=== PATIENT | male | born 1970 | race Two or more races ===

== ENCOUNTER 2021-05-16 22:26 | Inpatient (IN) ==
--- NOTE | 2021-05-16 23:08 | DR.EXTPAIN ---
HPI Time seen Time Seen by Provider: 05/16/21 23:01 PCP Primary Care Physician: GUNNER KEITH HPI Comment HPI Comment: PATIENT IS 50YR OLD MALE IN ER WITH PAIN AND SWELLING LEFT CALF DUE TO ABSCESS AND CELLULITIS TIMES 2 WEEKS. STATED ANTIBIOTICS 05/10/21 AND IS STILL TAKING IT. NO IMPROVEMENT. PAIN, SWELLING AND REDNESS WORSE TODAY. HE IS A DIABETIC. DENIES FEVER. SMALL PUS DRAINAGE PRESENT. Complaint/Symptoms Chief Complaint Doctor Comments: CELLULITIS AND ABSCESS LEFT CALF. 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 INFECTION IN HIS LOWER LEFT LEG FOR 2 WEEKS, HIS PCP STARTED HIM ON BACTRIM DS AND TORADOL ON 05/10/21, HE STATES IT HAS NOT GOTTEN ANY BETTER Self Treatment fo Chief Complaint: TAKING ANTIBIOTIC AND ANTI-INFLAMMATORY THAT WAS PRESCRIBED ON 05/10/21 COVID-19 Coronavirus risk:travel/contact w/high risk person: No Has patient experienced Coronavirus symptoms: No Nurses notes reviewed Nurses Notes Review: Yes Source History Provided: Patient and Family Member Mode of arrival Mode of Arrival: Ambulatory Timing Onset of Chief Complaint: 04/25/21 Context History of: None Associated signs and symptoms Associated Signs and Symptoms: Pain and Swelling PMH PMH Past Medical History: Yes Past Medical History: Diabetes Past Surgical History: Yes Surgical History: Other Past Surgical History Comment: TOE ON LEFT FOOT REMOVED Family History History of Family Medical Conditions: Yes Family Medical History: Diabetes Mellitus Social History Does patient currently use any type of tobacco product: No Have you used tobacco products in the last 12 months: No Type of Tobacco Use: None Does any household member use tobacco: No Alcohol Use: Rarely Do you use any recreational Drugs:: No Lives With: Family Lives Where: Home Travel Risk Coronavirus risk:travel/contact w/high risk person: No Has patient experienced Coronavirus symptoms: No Infectious screening Have you traveled outside the country in the last 6 months?: No Isolation: Standard ROS Review of Systems Constitutional: See HPI, Weakness and Fatigue; negative Fever Eyes: No Symptoms Reported and See HPI; negative Blurred Vision and Diplopia ENTM: No Symptoms Reported and See HPI; negative Nose Discharge and Nose Congestion Respiratoy: No Symptoms Reported and See HPI; negative Moist Cough, Short of Breath and Wheezing Cardiovascular: See HPI and Palpitations; negative Chest Pain Gastrointestinal/Abdominal: No Symptoms Reported, See HPI, Abdominal Pain, Constipation and Diarrhea Genitourinary: No Symptoms Reported and See HPI; negative Dysuria Neurological: No Symptoms Reported and See HPI; negative Headache, Seizure and Tingling Musculoskeletal: No Symptoms Reported, See HPI and Leg (LEFT CALF ABSCESS AND CELLULITIS.); negative Back Pain Integumentary: No Symptoms Reported and See HPI; negative Rash and Juandice Hematologic/Lymphatic: No Symptoms Reported and See HPI; negative Easy Bruising Endocrine: No Symptoms Reported and See HPI; negative Increased Thirst and Increased Urine Psychiatric: No Symptoms Reported and See HPI All Other Systems: Reviewed and Negative PE Vital Signs Vitals: Temperature 99.0 F Pulse Rate 81 Respiratory Rate 20 Blood Pressure [Left Arm] 176/91 Blood Pressure 185/108 O2 Sat by Pulse Oximetry 99 General Limitations: No Limitations General Appearance: Alert and In No Apparent Distress Head Head Exam: Normal Inspection and Atraumatic Eyes Eye exam: Normal Appearance and PERRL ENT ENT Exam: Normal Exam Neck Neck Exam: Normal Inspection Chest Chest Inspection: Normal Inspection Respiratory Respiratory Exam: Normal Lung Sounds Bilat; negative Accessory Muscle Use, Chest Wall Tenderness and Respiratory Distress Respiratory Exam: Bilateral: Clear to Auscultation Cardiovascular Cardiovascular Exam: Regular Rate, Normal Rhythm and Normal Heart Sounds; n egative Systolic Murmur and Diastolic Murmur Abdominal Exam Abdominal Exam: Normal Inspection, Normal Bowel Sounds and Soft; negative Tenderness Extremities Extremities Exam: Normal Inspection, Tenderness, Normal Capillary Refill, Calf Tenderness and Other Back Back Exam: Normal Inspection Neurological Neurological Exam: Alert, Oriented X3 and CN II-XII Intact Psychiatric Psychiatric Exam: Normal Affect and Normal Mood Skin Skin Exam: Warm, Dry, Intact and Normal Color MDM Differential Diagnosis Differential Diagnosis: Other (ABSCESS AND CELLULITIS LEFT CALF. PAIN LEFT CALF.) COURSE Treatment Treatment: SEE ORDERS DONE WHILE IN ER. ROR Labs Reviewed Laboratory Results Reviewed?: Yes Result Diagrams: 05/20/21 04:40 05/20/21 04:40 Laboratory: 05/16/21 23:30 Blood Blood Culture - Final 05/16/21 23:25 Blood Blood Culture - Final WBC 7.2 X10^3/uL (3.6-10.0) 05/16/21 23:25 RBC 3.91 X10^6/uL (4.7-6.0) L 05/16/21 23:25 Hgb 11.8 g/dL (13.5-18.0) L 05/16/21: Hct 34.8 % (42.0-54.0) L 05/16/21: MCV 89.2 fL (80.0-100.0) 05/16/21: MCH 30.1 pg (27.0-34.0) 05/16/21: MCHC 33.7 g/dL (33.0-35.0) 05/16/21: RDW 12.8 % (11.6-16.5) 05/16/21: Plt Count 290 X10^3/uL (150.0-450.0) 05/16/21: MPV 9.3 fL (7.4-11.0) 05/16/21: Neut % (Auto) 62.6 % (42.0-75.0) 05/16/21: Lymph % (Auto) 21.5 % (21.0-51.0) 05/16/21: [place] % (Auto) 9.0 % (0.0-13.0) 05/16/21: Eos % (Auto) 4.1 % (0.9-2.9) H 05/16/21: Baso % (Auto) 2.8 % (0.2-1.0) H 05/16/21: Neut # (Auto) 4.5 x10^3/uL (2.2-4.8) 05/16/21: Lymph # (Auto) 1.5 X10^3/uL (1.3-2.9) 05/16/21: [place] # (Auto) 0.6 x10^3/uL (0.3-0.8) 05/16/21: Eos # (Auto) 0.3 x10^3/uL (0.0-0.2) H 05/16/21: Baso # (Auto) 0.2 X10^3/uL (0.0-0.1) H 05/16/21: Absolute Nucleated RBC 0.1 /100WBC 05/16/21: Sodium 128 mmol/L (136-145) L 03/20/22 23:25 Corrected Sodium 134 mmol/L (136-145) L 05/16/21 23:25 Potassium 4.9 mmol/L (3.5-5.1) 05/16/21 23:25 Chloride 94 mmol/L (98-107) L 05/16/21 23:25 Carbon Dioxide 24.9 mmol/L (21-32) 05/16/21 23:25 BUN 26 mg/dL (7-18) H 05/16/21 23:25 Creatinine 1.14 mg/dL (0.70-1.30) 05/16/21 23:25 Est GFR (MDRD) Af Amer > 60 (>60) 05/16/21 23:25 Est GFR (MDRD) Non-Af > 60 (>60) 05/16/21 23:25 Glucose 343 mg/dL (65-99) H 05/16/21 23:25 Calcium 8.6 mg/dL (8.5-10.1) 05/16/21 23:25 Corrected Calcium 9.2 mg/dL (8.5-10.1) 05/16/21 23:25 Total Bilirubin 0.10 mg/dL (0.2-1.0) L 05/16/21 23:25 AST 11 Units/L (15-37) L 05/16/21 23:25 ALT 12 Units/L (12-78) 05/16/21 23:25 Alkaline Phosphatase 99 Units/L (46-116) 05/16/21 23:25 Total Protein 7.4 g/dL (6.4-8.2) 05/16/21 23:25 Albumin 3.2 g/dL (3.4-5.0) L 05/16/21 23:25 Globulin 4.2 g/dL (2.5-4.5) 05/16/21 23:25 Albumin/Globulin Ratio 0.8 Ratio (1.1-2.1) L 05/16/21 23:25 SARS CoV-2 RNA Rapid ALEXANDER Negative (NEGATIVE) 05/17/21 02:06 XRAY XRAY Interpreted by: Radiologist and Self Opioid Opioid Risk Tool Age (Ben box if 16-45): Yes History of Preadolescent Sexual Abuse: No Total: 1 Total Score Risk Category: Low Risk Copyright: Tan LR predicting aberrant behaviors Diagnosis Discharge Problem: Cellulitis and abscess of left leg, Pain of left calf Diabetes mellitus Qualifiers: Diabetes mellitus type: type 2 Instructions Instructions: Antibiotic Medicine, Adult, [id number] Skin Abscess, Knzu-[id number] Diabetes Basics Living With Diabetes Cellulitis, Adult, [id number] Hypertension, Adult, [id number] Form - Blood Pressure Record Sheet Form - Diabetes Action Plan You've Been Prescribed an Antibiotic in the Hospital for an Infection - CDC Managing Your Hypertension Diabetes Mellitus and Nutrition Forms: Excuse From Work or School Precautions for COVID19 [facility] Social Distancing
[2021-05-16] MEDS ORDERED: CLEOCIN 600 MG IV PREMIX 600 MG/50 ML BAG IV ONE (23:09)
[2021-05-16 23:36] LABS: BASOPHILS # (AUTO) 0.2 X10^3/uL (0.0-0.1); BASOPHILS % (AUTO) 2.8 % (0.2-1.0); EOSINOPHILS # (AUTO) 0.3 x10^3/uL (0.0-0.2); EOSINOPHILS % (AUTO) 4.1 % (0.9-2.9); HEMATOCRIT 34.8 % (42.0-54.0); HEMOGLOBIN 11.8 g/dL (13.5-18.0); LYMPHOCYTES # (AUTO) 1.5 X10^3/uL (1.3-2.9); LYMPHOCYTES % (AUTO) 21.5 % (21.0-51.0); MEAN CORPUSCULAR HEMOGLOBIN 30.1 pg (27.0-34.0); MEAN CORPUSCULAR HGB CONC 33.7 g/dL (33.0-35.0); MEAN CORPUSCULAR VOLUME 89.2 fL (80.0-100.0); MEAN PLATELET VOLUME 9.3 fL (7.4-11.0); MONOCYTES # (AUTO) 0.6 x10^3/uL (0.3-0.8); NEUTROPHILS # (AUTO) 4.5 x10^3/uL (2.2-4.8); NEUTROPHILS % (AUTO) 62.6 % (42.0-75.0); RED BLOOD COUNT 3.91 X10^6/uL (4.7-6.0); RED CELL DISTRIBUTION WIDTH 12.8 % (11.6-16.5); WHITE BLOOD COUNT 7.2 X10^3/uL (3.6-10.0)
[2021-05-16 23:49] LABS: ALANINE AMINOTRANSFERASE 12 Units/L (12-78); ALBUMIN 3.2 g/dL (3.4-5.0); ALKALINE PHOSPHATASE 99 Units/L (46-116); ASPARTATE AMINO TRANSFERASE 11 Units/L (15-37); BLOOD UREA NITROGEN 26 mg/dL (7-18); CALCIUM 8.6 mg/dL (8.5-10.1); CARBON DIOXIDE 24.9 mmol/L (21-32); CHLORIDE 94 mmol/L (98-107); COR CA(FOR HYPOALB) 9.2 mg/dL (8.5-10.1); COR NA(FOR HYPERGLY) 134 mmol/L (136-145); CREATININE 1.14 mg/dL (0.70-1.30); SODIUM 128 mmol/L (136-145); TOTAL PROTEIN 7.4 g/dL (6.4-8.2); eGFR NON BLACK RACES > 60 (>60)
[2021-05-17] MEDS ORDERED: NS 1,000 ML IV 1,000 ML ONE (00:35)
[2021-05-17] MEDS ORDERED: CLEOCIN 600 MG IV PREMIX 600 MG/50 ML BAG IV ONE (00:35)
[2021-05-17] MEDS: NS 1,000 ML IV 1,000 ML IV SCH ×4 (00:55→20:24)
--- NOTE | 2021-05-17 03:16 | RAD ---
PROCEDURE: Left Tibia Fibula 2 Views .HISTORY: Left calf abscess.TECHNIQUE: Left AP and lateral views .COMPARISON: None .TECHNICAL QUALITY: Satisfactory .FINDINGS:No fracture dislocation.No bony destruction or periosteal reaction.No soft tissue abnormality.IMPRESSION:No abnormality identified.Electronically signed by: Derrick Lora (May 17, 2021 03:16:03)
[2021-05-17] MEDS ORDERED: ZOFRAN TAB 4 MG PO PRN (03:50)
[2021-05-17 05:32] LABS: BASOPHILS % (AUTO) 0.7 % (0.2-1.0); EOSINOPHILS # (AUTO) 0.3 x10^3/uL (0.0-0.2); EOSINOPHILS % (AUTO) 4.5 % (0.9-2.9); HEMATOCRIT 33.9 % (42.0-54.0); HEMOGLOBIN 11.6 g/dL (13.5-18.0); LYMPHOCYTES # (AUTO) 1.6 X10^3/uL (1.3-2.9); LYMPHOCYTES % (AUTO) 24.3 % (21.0-51.0); MEAN CORPUSCULAR HEMOGLOBIN 30.3 pg (27.0-34.0); MEAN CORPUSCULAR HGB CONC 34.2 g/dL (33.0-35.0); MEAN CORPUSCULAR VOLUME 88.7 fL (80.0-100.0); MEAN PLATELET VOLUME 9.2 fL (7.4-11.0); MONOCYTES # (AUTO) 0.7 x10^3/uL (0.3-0.8); NEUTROPHILS % (AUTO) 60.5 % (42.0-75.0); RED BLOOD COUNT 3.82 X10^6/uL (4.7-6.0); RED CELL DISTRIBUTION WIDTH 12.7 % (11.6-16.5); WHITE BLOOD COUNT 6.6 X10^3/uL (3.6-10.0)
[2021-05-17 05:43] LABS: ALANINE AMINOTRANSFERASE 13 Units/L (12-78); ALKALINE PHOSPHATASE 93 Units/L (46-116); ASPARTATE AMINO TRANSFERASE 16 Units/L (15-37); BLOOD UREA NITROGEN 23 mg/dL (7-18); CALCIUM 8.3 mg/dL (8.5-10.1); CARBON DIOXIDE 24.3 mmol/L (21-32); CHLORIDE 97 mmol/L (98-107); COR CA(FOR HYPOALB) 9.1 mg/dL (8.5-10.1); COR NA(FOR HYPERGLY) 135 mmol/L (136-145); CREATININE 0.96 mg/dL (0.70-1.30); SODIUM 129 mmol/L (136-145); TOTAL PROTEIN 7.1 g/dL (6.4-8.2); eGFR NON BLACK RACES > 60 (>60)
[2021-05-17] MEDS: CLEOCIN 600 MG IV PREMIX 600 MG/50 ML BAG IV SCH ×3 (05:51→22:43)
[2021-05-17] MEDS: NovoLIN R (or HumuLIN R) SC PRN ×3 (05:52→17:10)
[2021-05-17] MEDS ORDERED: CLEOCIN VIAL 600 MG 600 MG in D5W 50 ML IV 50 ML IV SCH (06:00)
[2021-05-17] MEDS: MOTRIN TAB 600 MG PO PRN ×2 (08:30→17:10)
[2021-05-17 12:03] VITALS: BMI 25.3
[2021-05-17] MEDS ORDERED: ZESTRIL TAB 20 MG ONE (12:27)
[2021-05-17] MEDS: ZESTRIL TAB 20 MG PO SCH (12:30)
[2021-05-17] MEDS: CIPRO IV 400 MG PREMIX* 400 MG/200 ML IV.SOLN. IV SCH ×2 (12:30→20:22)
[2021-05-17 15:18] LABS: BILIRUBIN,URINE NEGATIVE (NEGATIVE); BLOOD/HEMOGLOBIN,URINE 1+ (NEGATIVE); GLUCOSE, URINE 4+ (NEGATIVE); KETONES,URINE NEGATIVE (NEGATIVE); LEUKOCYTE ESTERASE ,URINE NEGATIVE (NEGATIVE); NITRITES,URINE NEGATIVE (NEGATIVE); PROTEIN,URINE NEGATIVE (NEGATIVE); UROBILINOGEN,URINE NORMAL (NORMAL)
[2021-05-17 15:32] LABS: APPEARANCE,URINE CLEAR (CLEAR); COLOR,URINE PALE YELLOW (YELLOW)
[2021-05-17 15:33] LABS: BACTERIA,URINE TRACE /HPF (NEGATIVE); RBC,URINE 0-2 /HPF (0-3); SPERM,URINE FEW /HPF (NEGATIVE); SQUAMOUS EPITHELIAL CELL,UR RARE /HPF (NEGATIVE)
[2021-05-18] MEDS: NS 1,000 ML IV 1,000 ML IV SCH ×3 (04:36→22:27)
[2021-05-18 04:45] LABS: HEMATOCRIT 34.6 % (42.0-54.0); HEMOGLOBIN 11.7 g/dL (13.5-18.0); RED CELL DISTRIBUTION WIDTH 12.9 % (11.6-16.5); WHITE BLOOD COUNT 6.3 X10^3/uL (3.6-10.0)
[2021-05-18 04:46] LABS: BASOPHILS % (AUTO) 0.7 % (0.2-1.0); EOSINOPHILS # (AUTO) 0.3 x10^3/uL (0.0-0.2); EOSINOPHILS % (AUTO) 4.2 % (0.9-2.9); LYMPHOCYTES # (AUTO) 2.1 X10^3/uL (1.3-2.9); MEAN CORPUSCULAR HEMOGLOBIN 30.3 pg (27.0-34.0); MEAN CORPUSCULAR HGB CONC 33.7 g/dL (33.0-35.0); MEAN CORPUSCULAR VOLUME 89.8 fL (80.0-100.0); MEAN PLATELET VOLUME 9.4 fL (7.4-11.0); MONOCYTES # (AUTO) 0.6 x10^3/uL (0.3-0.8); NEUTROPHILS # (AUTO) 3.2 x10^3/uL (2.2-4.8); NEUTROPHILS % (AUTO) 51.1 % (42.0-75.0); RED BLOOD COUNT 3.86 X10^6/uL (4.7-6.0)
[2021-05-18 04:57] LABS: ALANINE AMINOTRANSFERASE 15 Units/L (12-78); ALBUMIN 2.9 g/dL (3.4-5.0); ALKALINE PHOSPHATASE 81 Units/L (46-116); ASPARTATE AMINO TRANSFERASE 12 Units/L (15-37); BLOOD UREA NITROGEN 17 mg/dL (7-18); CALCIUM 8.2 mg/dL (8.5-10.1); CARBON DIOXIDE 22.8 mmol/L (21-32); CHLORIDE 101 mmol/L (98-107); COR CA(FOR HYPOALB) 9.1 mg/dL (8.5-10.1); COR NA(FOR HYPERGLY) 136 mmol/L (136-145); CREATININE 0.92 mg/dL (0.70-1.30); SODIUM 132 mmol/L (136-145); TOTAL PROTEIN 6.9 g/dL (6.4-8.2); eGFR NON BLACK RACES > 60 (>60)
[2021-05-18] MEDS ORDERED: ZESTRIL TAB 20 MG ONE ×2 (05:31→09:06)
[2021-05-18] MEDS: CLEOCIN 600 MG IV PREMIX 600 MG/50 ML BAG IV SCH ×3 (05:36→22:28)
[2021-05-18] MEDS: ZESTRIL TAB 20 MG PO SCH (05:37)
[2021-05-18] MEDS: NovoLIN R (or HumuLIN R) SC PRN ×4 (05:42→20:41)
[2021-05-18] MEDS ORDERED: ZESTRIL TAB 20 MG PO ONE (08:34)
[2021-05-18] MEDS ORDERED: NORVASC TAB 5 MG PO SCH (09:00)
[2021-05-18] MEDS ORDERED: NORVASC TAB 5 MG ONE (09:06)
[2021-05-18] MEDS ORDERED: ACTOS PO ONE (09:06)
[2021-05-18] MEDS: ACTOS PO SCH (09:15)
[2021-05-18] MEDS: CIPRO IV 400 MG PREMIX* 400 MG/200 ML IV.SOLN. IV SCH ×2 (09:15→20:42)
[2021-05-18] MEDS: DAKINS SOLUTION HALF STRENGTH 0.25% EXT SCH (11:27)
--- NOTE | 2021-05-18 14:12 | DR.H&P ---
H&P History & Physical for Day of: H&P Date: 05/17/21 Chief Complaint Chief Complaint: Abscess and cellulitis of left calf. Allergies Allergies Allergy/AdvReac Type Severity Reaction Status Date / Time No Known Drug Allergies Allergy Verified 05/10/21 10:54 History of Present Illness History of Present Illness: This is a pleasant 50-year-old [place] male who spea ks very little Latvian. He presented to the emergency department for cellulitis and abscess. He had recently been to the emergency department a few days weeks ago in which he was receiving by mouth antibiotics. He is a is having pain in her calf muscle which she is taking Toradol for. He is a uncontrolled diabetic otherwise healthy. He has no other complaints at this time. Past Medical History Past Medical History: Diabetes Past Surgical History Surgical History: Other Family History Family Medical History: Diabetes Mellitus Social History Does patient currently use any type of tobacco product: No Have you used tobacco products in the last 12 months: No Type of Tobacco Use: None Does any household member use tobacco: No Alcohol Use: Occasionally Drug Use: None Medications Home Medications: No Known Drug Allergies Allergy (Verified 05/10/21 10:54) CONTINUE taking the following medications ketorolac 10 mg PO QID 05/16/21 [History] metformin 1,000 mg PO BID 05/16/21 [History] Labs Result Diagrams: 05/18/21 04:20 05/18/21 04:20 Labs: 05/16/21 23:30 Blood Blood Culture - Preliminary 05/16/21 23:25 Blood Blood Culture - Preliminary 05/17/21 10:20 Leg - Left Wound Culture - Preliminary Laboratory WBC 6.3 X10^3/uL (3.6-10.0) 05/18/21 04:20 RBC 3.86 X10^6/uL (4.7-6.0) L 05/18/21 04:20 Hgb 11.7 g/dL (13.5-18.0) L 05/18/21 04:20 Hct 34.6 % (42.0-54.0) L 05/18/21 04:20 MCV 89.8 fL (80.0-100.0) 05/18/21 04:20 MCH 30.3 pg (27.0-34.0) 05/18/21 04:20 MCHC 33.7 g/dL (33.0-35.0) 05/18/21 04:20 RDW 12.9 % (11.6-16.5) 05/18/21 04:20 Plt Count 290 X10^3/uL (150.0-450.0) 05/18/21 04:20 MPV 9.4 fL (7.4-11.0) 05/18/21 04:20 Neut % (Auto) 51.1 % (42.0-75.0) 05/18/21 04:20 Lymph % (Auto) 34.0 % (21.0-51.0) 05/18/21 04:20 [place] % (Auto) 10.0 % (0.0-13.0) 05/18/21 04:20 Eos % (Auto) 4.2 % (0.9-2.9) H 05/18/21 04:20 Baso % (Auto) 0.7 % (0.2-1.0) 05/18/21 04:20 Neut # (Auto) 3.2 x10^3/uL (2.2-4.8) 05/18/21 04:20 Lymph # (Auto) 2.1 X10^3/uL (1.3-2.9) 05/18/21 04:20 [place] # (Auto) 0.6 x10^3/uL (0.3-0.8) 05/18/21 04:20 Eos # (Auto) 0.3 x10^3/uL (0.0-0.2) H 05/18/21 04:20 Baso # (Auto) 0.0 X10^3/uL (0.0-0.1) 05/18/21 04:20 Absolute Nucleated RBC 0.1 /100WBC 05/18/21 04:20 Sodium 132 mmol/L (136-145) L 05/18/21 04:20 Corrected Sodium 136 mmol/L (136-145) 05/18/21 04:20 Potassium 5.0 mmol/L (3.5-5.1) 05/18/21 04:20 Chloride 101 mmol/L (98-107) 05/18/21 04:20 Carbon Dioxide 22.8 mmol/L (21-32) 05/18/21 04:20 BUN 17 mg/dL (7-18) 05/18/21 04:20 Creatinine 0.92 mg/dL (0.70-1.30) 05/18/21 04:20 Est GFR (MDRD) Af Amer > 60 (>60) 05/18/21 04:20 Est GFR (MDRD) Non-Af > 60 (>60) 05/18/21 04:20 Glucose 262 mg/dL (65-99) H 05/18/21 04:20 POC Glucose (mg/dL) 329 mg/dL (65-99) H 05/18/21 12:15 Calcium 8.2 mg/dL (8.5-10.1) L 05/18/21 04:20 Corrected Calcium 9.1 mg/dL (8.5-10.1) 05/18/21 04:20 Total Bilirubin 0.20 mg/dL (0.2-1.0) 05/18/21 04:20 AST 12 Units/L (15-37) L 05/18/21 04:20 ALT 15 Units/L (12-78) 05/18/21 04:20 Alkaline Phosphatase 81 Units/L (46-116) 05/18/21 04:20 Total Protein 6.9 g/dL (6.4-8.2) 05/18/21 04:20 Albumin 2.9 g/dL (3.4-5.0) L 05/18/21 04:20 Globulin 4.0 g/dL (2.5-4.5) 05/18/21 04:20 Albumin/Globulin Ratio 0.7 Ratio (1.1-2.1) L 05/18/21 04:20 Specimen Type Clean catch urine 05/17/21 15:00 Urine Color Pale yellow (YELLOW) 05/17/21 15:00 Urine Appearance Clear (CLEAR) 05/17/21 15:00 Urine pH 6.0 (5.0 - 8.0) 05/17/21 15:00 Ur Specific [place] 1.010 (1.000-1.030) 05/17/21 15:00 Urine Protein Negative (NEGATIVE) 05/17/21 15:00 Urine Glucose (UA) 4+ (NEGATIVE) 05/17/21 15:00 Urine Ketones Negative (NEGATIVE) 05/17/21 15:00 Urine Blood 1+ (NEGATIVE) 05/17/21 15:00 Urine Nitrite Negative (NEGATIVE) 05/17/21 15:00 Urine Bilirubin Negative (NEGATIVE) 05/17/21 15:00 Urine Urobilinogen Normal (NORMAL) 05/17/21 15:00 Ur Leukocyte Esterase Negative (NEGATIVE) 05/17/21 15:00 Urine RBC 0-2 /HPF (0-3) 05/17/21 15:00 Urine WBC None seen /HPF (0-5) 05/17/21 15:00 Ur Squamous Epith Cells Rare /HPF (NEGATIVE) 05/17/21 15:00 Urine Bacteria Trace /HPF (NEGATIVE) 05/17/21 15:00 Urine Sperm Few /HPF (NEGATIVE) 05/17/21 15:00 Ur Culture Indicated? No/not indicated 05/17/21 15:00 SARS CoV-2 RNA Rapid ALEXANDER Negative (NEGATIVE) 05/17/21 02:06 Review of Systems Constitutional: No Symptoms Reported Eyes: No Symptoms Reported ENT: No Symptoms Reported Respiratory: No Symptoms Reported Cardiovascular: No Symptoms Reported Gastrointestinal: No Symptoms Reported Genitourinary: No Symptoms Reported Musculoskeletal: Leg Pain Skin: No Symptoms Reported Neurological: No Symptoms Reported Physical Exam Vital Signs: Temperature 98.1 F Pulse Rate [Left] 67 Pulse Rate 81 Respiratory Rate 15 Blood Pressure [Left Arm] 131/78 Blood Pressure 185/108 O2 Sat by Pulse Oximetry 98 Oriented: Normal, Time, Person and Place Eyes: Normal Ear: Normal Nose: Normal Throat: Normal Respiratory: Clear Throughout Cardiovascular: Normal : Normal Auscultation: Bowel Sounds: Normal Palpation: Normal Tenderness: Normal Skin: Other (Left posterior calf with a dime size ulcer with adjacent erythema.) Musculoskeletal: Normal Psychiatric: Normal Mood Description: Calm Affect: Normal Speech Pattern: Clear and Appropriate Assessment/Plan (1) Cellulitis and abscess of left leg: Status: Acute Plan: I will continue the patient on IV clindamycin at this time. I will also consult general surgery to see if this wound needs incision and drainage. I will also have the nurses to check a wound culture. (2) Diabetes mellitus: Status: Acute Plan: I will continue the patient on metformin 500 mg by mouth twice a day I will also cover him with a regular insulin sliding scale. (3) Pain of left calf: Status: Acute Plan: Ibuprofen for pain control. (4) Hypertension: Status: Acute Plan: Lisinopril 20 mg po qday. Review H&P Reviewed: Yes Patient was examined?: Yes
--- NOTE | 2021-05-18 14:16 | PCM.PROG ---
Progress Note Progress Note for Day of Date of Exam: 05/18/21 Subjective Subjective: The patient reports he is doing better this am. Less pain and redness of left calf. Surgery did not recommend I&D at this time. F/U with wound cultures. Past Medical Family Social History Past Med/Fam/Surg Hx: Changes noted (describe) Changes in Past Med/Fam/Surg Hx: HTN Allergies: Allergies No Known Drug Allergies Allergy (Verified 05/10/21 10:54) Review of Systems ROS: No change since H&P Vital Signs and I&O's Vital Signs: Temperature 98.1 F Pulse Rate [Left] 67 Pulse Rate 81 Respiratory Rate 15 Blood Pressure [Left Arm] 131/78 Blood Pressure 185/108 O2 Sat by Pulse Oximetry 98 Intake and Output: Intake & Output 05/16/21 05/17/21 05/18/21 05/19/21 11:59 11:59 11:59 11:59 Intake Total 350 / 350 3432 / 3432 Output Total 0 / 0 4550 / 4550 Balance 350 / 350 -1118 / -1118 Physical Exam Oriented: Normal, Time, Person and Place Eyes: Normal Ear: Normal Nose: Normal Throat: Normal Respiratory: Normal Cardiovascular: Normal : Normal Auscultation: Bowel Sounds: Normal Tenderness: Normal Skin: Other (Left posterior calf with a dime size ulcer with adjacent erythema.) Musculoskeletal: Normal Psychiatric: Normal Mood Description: Calm Affect: Normal Speech Pattern: Clear and Appropriate Laboratory and Diagnostics Result Diagrams: 05/18/21 04:20 05/18/21 04:20 Labs: 05/16/21 23:30 Blood Blood Culture - Preliminary 05/16/21 23:25 Blood Blood Culture - Preliminary 05/17/21 10:20 Leg - Left Wound Culture - Preliminary Laboratory WBC 6.3 X10^3/uL (3.6-10.0) 05/18/21 04:20 RBC 3.86 X10^6/uL (4.7-6.0) L 05/18/21 04:20 Hgb 11.7 g/dL (13.5-18.0) L 05/18/21 04:20 Hct 34.6 % (42.0-54.0) L 05/18/21 04:20 MCV 89.8 fL (80.0-100.0) 05/18/21 04:20 MCH 30.3 pg (27.0-34.0) 05/18/21 04:20 MCHC 33.7 g/dL (33.0-35.0) 05/18/21 04:20 RDW 12.9 % (11.6-16.5) 05/18/21 04:20 Plt Count 290 X10^3/uL (150.0-450.0) 05/18/21 04:20 MPV 9.4 fL (7.4-11.0) 05/18/21 04:20 Neut % (Auto) 51.1 % (42.0-75.0) 05/18/21 04:20 Lymph % (Auto) 34.0 % (21.0-51.0) 05/18/21 04:20 [place] % (Auto) 10.0 % (0.0-13.0) 05/18/21 04:20 Eos % (Auto) 4.2 % (0.9-2.9) H 05/18/21 04:20 Baso % (Auto) 0.7 % (0.2-1.0) 05/18/21 04:20 Neut # (Auto) 3.2 x10^3/uL (2.2-4.8) 05/18/21 04:20 Lymph # (Auto) 2.1 X10^3/uL (1.3-2.9) 05/18/21 04:20 [place] # (Auto) 0.6 x10^3/uL (0.3-0.8) 05/18/21 04:20 Eos # (Auto) 0.3 x10^3/uL (0.0-0.2) H 05/18/21 04:20 Baso # (Auto) 0.0 X10^3/uL (0.0-0.1) 05/18/21 04:20 Absolute Nucleated RBC 0.1 /100WBC 05/18/21 04:20 Sodium 132 mmol/L (136-145) L 05/18/21 04:20 Corrected Sodium 136 mmol/L (136-145) 05/18/21 04:20 Potassium 5.0 mmol/L (3.5-5.1) 05/18/21 04:20 Chloride 101 mmol/L (98-107) 05/18/21 04:20 Carbon Dioxide 22.8 mmol/L (21-32) 05/18/21 04:20 BUN 17 mg/dL (7-18) 05/18/21 04:20 Creatinine 0.92 mg/dL (0.70-1.30) 05/18/21 04:20 Est GFR (MDRD) Af Amer > 60 (>60) 05/18/21 04:20 Est GFR (MDRD) Non-Af > 60 (>60) 05/18/21 04:20 Glucose 262 mg/dL (65-99) H 05/18/21 04:20 POC Glucose (mg/dL) 329 mg/dL (65-99) H 05/18/21 12:15 Calcium 8.2 mg/dL (8.5-10.1) L 05/18/21 04:20 Corrected Calcium 9.1 mg/dL (8.5-10.1) 05/18/21 04:20 Total Bilirubin 0.20 mg/dL (0.2-1.0) 05/18/21 04:20 AST 12 Units/L (15-37) L 05/18/21 04:20 ALT 15 Units/L (12-78) 05/18/21 04:20 Alkaline Phosphatase 81 Units/L (46-116) 05/18/21 04:20 Total Protein 6.9 g/dL (6.4-8.2) 05/18/21 04:20 Albumin 2.9 g/dL (3.4-5.0) L 05/18/21 04:20 Globulin 4.0 g/dL (2.5-4.5) 05/18/21 04:20 Albumin/Globulin Ratio 0.7 Ratio (1.1-2.1) L 05/18/21 04:20 Specimen Type Clean catch urine 05/17/21 15:00 Urine Color Pale yellow (YELLOW) 05/17/21 15:00 Urine Appearance Clear (CLEAR) 05/17/21 15:00 Urine pH 6.0 (5.0 - 8.0) 05/17/21 15:00 Ur Specific [place] 1.010 (1.000-1.030) 05/17/21 15:00 Urine Protein Negative (NEGATIVE) 05/17/21 15:00 Urine Glucose (UA) 4+ (NEGATIVE) 05/17/21 15:00 Urine Ketones Negative (NEGATIVE) 05/17/21 15:00 Urine Blood 1+ (NEGATIVE) 05/17/21 15:00 Urine Nitrite Negative (NEGATIVE) 05/17/21 15:00 Urine Bilirubin Negative (NEGATIVE) 05/17/21 15:00 Urine Urobilinogen Normal (NORMAL) 05/17/21 15:00 Ur Leukocyte Esterase Negative (NEGATIVE) 05/17/21 15:00 Urine RBC 0-2 /HPF (0-3) 05/17/21 15:00 Urine WBC None seen /HPF (0-5) 05/17/21 15:00 Ur Squamous Epith Cells Rare /HPF (NEGATIVE) 05/17/21 15:00 Urine Bacteria Trace /HPF (NEGATIVE) 05/17/21 15:00 Urine Sperm Few /HPF (NEGATIVE) 05/17/21 15:00 Ur Culture Indicated? No/not indicated 05/17/21 15:00 SARS CoV-2 RNA Rapid ALEXANDER Negative (NEGATIVE) 05/17/21 02:06 Plan (1) Cellulitis and abscess of left leg: Status: Acute Narrative Support Text: Improved. Plan: I will continue the patient on IV clindamycin and Cipro at this time. (2) Diabetes mellitus: Status: Acute Plan: Add Actos 30 mg daily. (3) Pain of left calf: Status: Acute Plan: Ibuprofen for pain control. (4) Hypertension: Status: Acute Plan: Change Lisinopril to 40 mg daily and add Amlodipine 5 mg daily as w ell for uncontrolled HTN.
[2021-05-18] MEDS: MOTRIN TAB 600 MG PO PRN (17:00)
[2021-05-19 05:08] LABS: BASOPHILS # (AUTO) 0.1 X10^3/uL (0.0-0.1); BASOPHILS % (AUTO) 1.5 % (0.2-1.0); EOSINOPHILS # (AUTO) 0.3 x10^3/uL (0.0-0.2); EOSINOPHILS % (AUTO) 4.5 % (0.9-2.9); HEMATOCRIT 35.6 % (42.0-54.0); HEMOGLOBIN 11.9 g/dL (13.5-18.0); LYMPHOCYTES # (AUTO) 1.9 X10^3/uL (1.3-2.9); LYMPHOCYTES % (AUTO) 31.4 % (21.0-51.0); MEAN CORPUSCULAR HEMOGLOBIN 29.9 pg (27.0-34.0); MEAN CORPUSCULAR HGB CONC 33.3 g/dL (33.0-35.0); MEAN CORPUSCULAR VOLUME 89.7 fL (80.0-100.0); MEAN PLATELET VOLUME 9.6 fL (7.4-11.0); MONOCYTES # (AUTO) 0.7 x10^3/uL (0.3-0.8); MONOCYTES % (AUTO) 10.5 % (0.0-13.0); NEUTROPHILS # (AUTO) 3.2 x10^3/uL (2.2-4.8); NEUTROPHILS % (AUTO) 52.1 % (42.0-75.0); RED BLOOD COUNT 3.96 X10^6/uL (4.7-6.0); RED CELL DISTRIBUTION WIDTH 12.8 % (11.6-16.5); WHITE BLOOD COUNT 6.2 X10^3/uL (3.6-10.0)
[2021-05-19 05:22] LABS: ALANINE AMINOTRANSFERASE 13 Units/L (12-78); ALBUMIN 2.8 g/dL (3.4-5.0); ALKALINE PHOSPHATASE 78 Units/L (46-116); ASPARTATE AMINO TRANSFERASE 12 Units/L (15-37); BLOOD UREA NITROGEN 16 mg/dL (7-18); CALCIUM 8.3 mg/dL (8.5-10.1); CARBON DIOXIDE 22.7 mmol/L (21-32); CHLORIDE 103 mmol/L (98-107); COR CA(FOR HYPOALB) 9.3 mg/dL (8.5-10.1); COR NA(FOR HYPERGLY) 136 mmol/L (136-145); CREATININE 0.79 mg/dL (0.70-1.30); SODIUM 133 mmol/L (136-145); TOTAL PROTEIN 6.9 g/dL (6.4-8.2); eGFR NON BLACK RACES > 60 (>60)
[2021-05-19] MEDS: NS 1,000 ML IV 1,000 ML IV SCH ×3 (05:30→22:17)
[2021-05-19] MEDS: CLEOCIN 600 MG IV PREMIX 600 MG/50 ML BAG IV SCH ×3 (05:30→22:45)
[2021-05-19] MEDS: NovoLIN R (or HumuLIN R) SC PRN ×4 (06:00→20:39)
[2021-05-19] MEDS ORDERED: NORCO 7.5/325 MG TAB ONE (09:00)
[2021-05-19] MEDS ORDERED: NORVASC TAB 10 MG ONE (09:00)
[2021-05-19] MEDS: ACTOS PO SCH (09:03)
[2021-05-19] MEDS: CIPRO IV 400 MG PREMIX* 400 MG/200 ML IV.SOLN. IV SCH ×2 (09:04→20:37)
[2021-05-19] MEDS: NORCO 7.5/325 MG TAB PO PRN ×2 (09:04→19:24)
[2021-05-19] MEDS: NORVASC TAB 5 MG PO SCH (09:05)
[2021-05-19] MEDS: ZESTRIL TAB 40 MG PO SCH (09:13)
[2021-05-19] MEDS: DAKINS SOLUTION HALF STRENGTH 0.25% EXT SCH (09:14)
--- NOTE | 2021-05-19 15:15 | DR.PROGNOT ---
Hospital Progress Notes - Progress Note for Day of: Progress Note Date: 05/19/21 - Chief Complaint Chief Complaint: less pain . cellulitis is subsiding with less swelling and erythema . pain is less . still having moderate drainage .. BS is 236. TEMP 98.6 . - Past Medical Family Social History Past Med/Fam/Surg Hx: No changes since H&P Changes in Past Med/Fam/Surg Hx: HTN Allergies: Allergies No Known Drug Allergies Allergy (Verified 05/10/21 10:54) - Review Of Systems ROS: No change since H&P - Vital Signs Vital Signs: Temperature 98.6 F Pulse Rate [Left] 70 Pulse Rate 76 Respiratory Rate 20 Blood Pressure [Left Arm] 155/89 Blood Pressure 156/93 O2 Sat by Pulse Oximetry 97 - Physical Exam Oriented: Normal, Time, Person, Place Eyes: Normal Ear: Normal Nose: Normal Throat: Normal Respiratory: Normal Cardiovascular: Normal : Normal GI:Auscultation: Normal GI:Palpation: Normal GI: Tenderness: Normal Skin: negative: Other (4x 4 cm of erythema and 1 x 1 cm of open wound with moderate drainage ..) Musculoskeletal: Normal Psychiatric: Normal Mood Description: Calm Affect: Normal Speech Pattern: Clear, Appropriate - Laboratory and Diagnostics Result Diagrams: 05/19/21 04:05 05/19/21 04:05 Labs: 05/17/21 10:20 Leg - Left Wound Culture - Final Staphylococcus Aureus 05/16/21 23:30 Blood Blood Culture - Preliminary 05/16/21 23:25 Blood Blood Culture - Preliminary Laboratory WBC 6.2 X10^3/uL (3.6-10.0) 05/19/21 04:05 RBC 3.96 X10^6/uL (4.7-6.0) L 05/19/21 04:05 Hgb 11.9 g/dL (13.5-18.0) L 05/19/21 04:05 Hct 35.6 % (42.0-54.0) L 05/19/21 04:05 MCV 89.7 fL (80.0-100.0) 05/19/21 04:05 MCH 29.9 pg (27.0-34.0) 05/19/21 04:05 MCHC 33.3 g/dL (33.0-35.0) 05/19/21 04:05 RDW 12.8 % (11.6-16.5) 05/19/21 04:05 Plt Count 301 X10^3/uL (150.0-450.0) 05/19/21 04:05 MPV 9.6 fL (7.4-11.0) 05/19/21 04:05 Neut % (Auto) 52.1 % (42.0-75.0) 05/19/21 04:05 Lymph % (Auto) 31.4 % (21.0-51.0) 05/19/21 04:05 [place] % (Auto) 10.5 % (0.0-13.0) 05/19/21 04:05 Eos % (Auto) 4.5 % (0.9-2.9) H 05/19/21 04:05 Baso % (Auto) 1.5 % (0.2-1.0) H 05/19/21 04:05 Neut # (Auto) 3.2 x10^3/uL (2.2-4.8) 05/19/21 04:05 Lymph # (Auto) 1.9 X10^3/uL (1.3-2.9) 05/19/21 04:05 [place] # (Auto) 0.7 x10^3/uL (0.3-0.8) 05/19/21 04:05 Eos # (Auto) 0.3 x10^3/uL (0.0-0.2) H 05/19/21 04:05 Baso # (Auto) 0.1 X10^3/uL (0.0-0.1) 05/19/21 04:05 Absolute Nucleated RBC 0.0 /100WBC 05/19/21 04:05 Sodium 133 mmol/L (136-145) L 05/19/21 04:05 Corrected Sodium 136 mmol/L (136-145) 05/19/21 04:05 Potassium 4.3 mmol/L (3.5-5.1) 05/19/21 04:05 Chloride 103 mmol/L (98-107) 05/19/21 04:05 Carbon Dioxide 22.7 mmol/L (21-32) 05/19/21 04:05 BUN 16 mg/dL (7-18) 05/19/21 04:05 Creatinine 0.79 mg/dL (0.70-1.30) 05/19/21 04:05 Est GFR (MDRD) Af Amer > 60 (>60) 05/19/21 04:05 Est GFR (MDRD) Non-Af > 60 (>60) 05/19/21 04:05 Glucose 243 mg/dL (65-99) H 05/19/21 04:05 POC Glucose (mg/dL) 236 mg/dL (65-99) H 05/19/21 11:07 Calcium 8.3 mg/dL (8.5-10.1) L 05/19/21 04:05 Corrected Calcium 9.3 mg/dL (8.5-10.1) 05/19/21 04:05 Total Bilirubin 0.20 mg/dL (0.2-1.0) 05/19/21 04:05 AST 12 Units/L (15-37) L 05/19/21 04:05 ALT 13 Units/L (12-78) 05/19/21 04:05 Alkaline Phosphatase 78 Units/L (46-116) 05/19/21 04:05 Total Protein 6.9 g/dL (6.4-8.2) 05/19/21 04:05 Albumin 2.8 g/dL (3.4-5.0) L 05/19/21 04:05 Globulin 4.1 g/dL (2.5-4.5) 05/19/21 04:05 Albumin/Globulin Ratio 0.7 Ratio (1.1-2.1) L 05/19/21 04:05 Specimen Type Clean catch urine 05/17/21 15:00 Urine Color Pale yellow (YELLOW) 05/17/21 15:00 Urine Appearance Clear (CLEAR) 05/17/21 15:00 Urine pH 6.0 (5.0 - 8.0) 05/17/21 15:00 Ur Specific [place] 1.010 (1.000-1.030) 05/17/21 15:00 Urine Protein Negative (NEGATIVE) 05/17/21 15:00 Urine Glucose (UA) 4+ (NEGATIVE) 05/17/21 15:00 Urine Ketones Negative (NEGATIVE) 05/17/21 15:00 Urine Blood 1+ (NEGATIVE) 05/17/21 15:00 Urine Nitrite Negative (NEGATIVE) 05/17/21 15:00 Urine Bilirubin Negative (NEGATIVE) 05/17/21 15:00 Urine Urobilinogen Normal (NORMAL) 05/17/21 15:00 Ur Leukocyte Esterase Negative (NEGATIVE) 05/17/21 15:00 Urine RBC 0-2 /HPF (0-3) 05/17/21 15:00 Urine WBC None seen /HPF (0-5) 05/17/21 15:00 Ur Squamous Epith Cells Rare /HPF (NEGATIVE) 05/17/21 15:00 Urine Bacteria Trace /HPF (NEGATIVE) 05/17/21 15:00 Urine Sperm Few /HPF (NEGATIVE) 05/17/21 15:00 Ur Culture Indicated? No/not indicated 05/17/21 15:00 SARS CoV-2 RNA Rapid ALEXANDER Negative (NEGATIVE) 05/17/21 02:06 - Assessment and Plan 1: subsiding cellulitis and abscess LT leg with positive for. Staph sensitive to the ABT .. same loc al care and IV ABT .. Diabetic control .. to follow in one week in the office .. - Problem Patient Problems: Patient Problems Cellulitis and abscess of left leg (Acute) L03.116, L02.416 Diabetes mellitus (Acute) E11.9 Pain of left calf (Acute) M79.662
--- NOTE | 2021-05-19 20:54 | PCM.PROG ---
Progress Note Progress Note for Day of Date of Exam: 05/19/21 Subjective Subjective: The patient reports he is doing better this am. Some pain and redness of left calf. Surgery did not recommend I&D at this time. F/U with wound cultures. His culture from his left calf that were done last week came back and he grew out Staphylococcus aureus. It shows that it is sensitive to his Cipro and clindamycin that he is receiving. He also reports his pain is not controlled at this time. I will add [place] 7.5/325 mg every 6 hours as needed for pain. Plan on discharge in 2 more days. Past Medical Family Social History Past Med/Fam/Surg Hx: No changes since H&P Allergies: Allergies No Known Drug Allergies Allergy (Verified 05/10/21 10:54) Review of Systems ROS: No change since H&P Vital Signs and I&O's Vital Signs: Temperature 98.3 F Pulse Rate [Left] 70 Pulse Rate 79 Respiratory Rate 18 Blood Pressure [Left Arm] 155/89 Blood Pressure 158/96 O2 Sat by Pulse Oximetry 95 Intake and Output: Intake & Output 05/17/21 05/18/21 05/19/21 05/20/21 11:59 11:59 11:59 11:59 Intake Total 350 / 350 3432 / 3432 4475 / 4475 1070 / 1070 Output Total 0 / 0 4550 / 4550 2875 / 2875 Balance 350 / 350 -1118 / -1118 1600 / 1600 1070 / 1070 Physical Exam Oriented: Normal, Time, Person and Place Eyes: Normal Ear: Normal Nose: Normal Throat: Normal Respiratory: Normal Cardiovascular: Normal : Normal Auscultation: Bowel Sounds: Normal Tenderness: Normal Musculoskeletal: Normal Psychiatric: Normal Mood Description: Calm Affect: Normal Speech Pattern: Clear and Appropriate Laboratory and Diagnostics Result Diagrams: 05/19/21 04:05 05/19/21 04:05 Labs: 05/17/21 10:20 Leg - Left Wound Culture - Final Staphylococcus Aureus 05/16/21 23:30 Blood Blood Culture - Preliminary 05/16/21 23:25 Blood Blood Culture - Preliminary Laboratory WBC 6.2 X10^3/uL (3.6-10.0) 05/19/21 04:05 RBC 3.96 X10^6/uL (4.7-6.0) L 05/19/21 04:05 Hgb 11.9 g/dL (13.5-18.0) L 05/19/21 04:05 Hct 35.6 % (42.0-54.0) L 05/19/21 04:05 MCV 89.7 fL (80.0-100.0) 05/19/21 04:05 MCH 29.9 pg (27.0-34.0) 05/19/21 04:05 MCHC 33.3 g/dL (33.0-35.0) 05/19/21 04:05 RDW 12.8 % (11.6-16.5) 05/19/21 04:05 Plt Count 301 X10^3/uL (150.0-450.0) 05/19/21 04:05 MPV 9.6 fL (7.4-11.0) 05/19/21 04:05 Neut % (Auto) 52.1 % (42.0-75.0) 05/19/21 04:05 Lymph % (Auto) 31.4 % (21.0-51.0) 05/19/21 04:05 [place] % (Auto) 10.5 % (0.0-13.0) 05/19/21 04:05 Eos % (Auto) 4.5 % (0.9-2.9) H 05/19/21 04:05 Baso % (Auto) 1.5 % (0.2-1.0) H 05/19/21 04:05 Neut # (Auto) 3.2 x10^3/uL (2.2-4.8) 05/19/21 04:05 Lymph # (Auto) 1.9 X10^3/uL (1.3-2.9) 05/19/21 04:05 [place] # (Auto) 0.7 x10^3/uL (0.3-0.8) 05/19/21 04:05 Eos # (Auto) 0.3 x10^3/uL (0.0-0.2) H 05/19/21 04:05 Baso # (Auto) 0.1 X10^3/uL (0.0-0.1) 05/19/21 04:05 Absolute Nucleated RBC 0.0 /100WBC 05/19/21 04:05 Sodium 133 mmol/L (136-145) L 05/19/21 04:05 Corrected Sodium 136 mmol/L (136-145) 05/19/21 04:05 Potassium 4.3 mmol/L (3.5-5.1) 05/19/21 04:05 Chloride 103 mmol/L (98-107) 05/19/21 04:05 Carbon Dioxide 22.7 mmol/L (21-32) 05/19/21 04:05 BUN 16 mg/dL (7-18) 05/19/21 04:05 Creatinine 0.79 mg/dL (0.70-1.30) 05/19/21 04:05 Est GFR (MDRD) Af Amer > 60 (>60) 05/19/21 04:05 Est GFR (MDRD) Non-Af > 60 (>60) 05/19/21 04:05 Glucose 243 mg/dL (65-99) H 05/19/21 04:05 POC Glucose (mg/dL) 350 mg/dL (65-99) H 05/19/21 19:10 Calcium 8.3 mg/dL (8.5-10.1) L 05/19/21 04:05 Corrected Calcium 9.3 mg/dL (8.5-10.1) 05/19/21 04:05 Total Bilirubin 0.20 mg/dL (0.2-1.0) 05/19/21 04:05 AST 12 Units/L (15-37) L 05/19/21 04:05 ALT 13 Units/L (12-78) 05/19/21 04:05 Alkaline Phosphatase 78 Units/L (46-116) 05/19/21 04:05 Total Protein 6.9 g/dL (6.4-8.2) 05/19/21 04:05 Albumin 2.8 g/dL (3.4-5.0) L 05/19/21 04:05 Globulin 4.1 g/dL (2.5-4.5) 05/19/21 04:05 Albumin/Globulin Ratio 0.7 Ratio (1.1-2.1) L 05/19/21 04:05 Specimen Type Clean catch urine 05/17/21 15:00 Urine Color Pale yellow (YELLOW) 05/17/21 15:00 Urine Appearance Clear (CLEAR) 05/17/21 15:00 Urine pH 6.0 (5.0 - 8.0) 05/17/21 15:00 Ur Specific [place] 1.010 (1.000-1.030) 05/17/21 15:00 Urine Protein Negative (NEGATIVE) 05/17/21 15:00 Urine Glucose (UA) 4+ (NEGATIVE) 05/17/21 15:00 Urine Ketones Negative (NEGATIVE) 05/17/21 15:00 Urine Blood 1+ (NEGATIVE) 05/17/21 15:00 Urine Nitrite Negative (NEGATIVE) 05/17/21 15:00 Urine Bilirubin Negative (NEGATIVE) 05/17/21 15:00 Urine Urobilinogen Normal (NORMAL) 05/17/21 15:00 Ur Leukocyte Esterase Negative (NEGATIVE) 05/17/21 15:00 Urine RBC 0-2 /HPF (0-3) 05/17/21 15:00 Urine WBC None seen /HPF (0-5) 05/17/21 15:00 Ur Squamous Epith Cells Rare /HPF (NEGATIVE) 05/17/21 15:00 Urine Bacteria Trace /HPF (NEGATIVE) 05/17/21 15:00 Urine Sperm Few /HPF (NEGATIVE) 05/17/21 15:00 Ur Culture Indicated? No/not indicated 05/17/21 15:00 SARS CoV-2 RNA Rapid ALEXANDER Negative (NEGATIVE) 05/17/21 02:06 Plan (1) Cellulitis and abscess of left leg: Status: Acute Plan: I will continue the patient on IV clindamycin and Cipro at this time. (2) Diabetes mellitus: Status: Acute Plan: Add Actos 30 mg daily. (3) Pain of left calf: Status: Acute Plan: Ibuprofen for pain control. (4) Hypertension: Status: Acute Plan: Change Lisinopril to 40 mg daily and add Amlodipine 5 mg daily as well for uncontrolled HTN.
[2021-05-20 05:14] LABS: BASOPHILS # (AUTO) 0.1 X10^3/uL (0.0-0.1); BASOPHILS % (AUTO) 2.6 % (0.2-1.0); EOSINOPHILS # (AUTO) 0.2 x10^3/uL (0.0-0.2); EOSINOPHILS % (AUTO) 4.4 % (0.9-2.9); HEMATOCRIT 35.8 % (42.0-54.0); LYMPHOCYTES # (AUTO) 1.7 X10^3/uL (1.3-2.9); LYMPHOCYTES % (AUTO) 30.1 % (21.0-51.0); MEAN CORPUSCULAR HEMOGLOBIN 29.9 pg (27.0-34.0); MEAN CORPUSCULAR HGB CONC 33.5 g/dL (33.0-35.0); MEAN CORPUSCULAR VOLUME 89.4 fL (80.0-100.0); MEAN PLATELET VOLUME 9.3 fL (7.4-11.0); MONOCYTES # (AUTO) 0.6 x10^3/uL (0.3-0.8); MONOCYTES % (AUTO) 10.3 % (0.0-13.0); NEUTROPHILS # (AUTO) 2.9 x10^3/uL (2.2-4.8); NEUTROPHILS % (AUTO) 52.6 % (42.0-75.0); RED CELL DISTRIBUTION WIDTH 12.5 % (11.6-16.5); WHITE BLOOD COUNT 5.5 X10^3/uL (3.6-10.0)
[2021-05-20] MEDS: NS 1,000 ML IV 1,000 ML IV SCH (05:20)
[2021-05-20] MEDS: CLEOCIN 600 MG IV PREMIX 600 MG/50 ML BAG IV SCH ×3 (05:20→22:22)
[2021-05-20] MEDS: NORCO 7.5/325 MG TAB PO PRN ×2 (05:22→20:45)
[2021-05-20 05:27] LABS: ALANINE AMINOTRANSFERASE 15 Units/L (12-78); ALKALINE PHOSPHATASE 86 Units/L (46-116); ASPARTATE AMINO TRANSFERASE 10 Units/L (15-37); BLOOD UREA NITROGEN 14 mg/dL (7-18); CALCIUM 8.5 mg/dL (8.5-10.1); CARBON DIOXIDE 25.4 mmol/L (21-32); CHLORIDE 102 mmol/L (98-107); COR CA(FOR HYPOALB) 9.3 mg/dL (8.5-10.1); COR NA(FOR HYPERGLY) 138 mmol/L (136-145); CREATININE 0.84 mg/dL (0.70-1.30); SODIUM 134 mmol/L (136-145); TOTAL PROTEIN 7.3 g/dL (6.4-8.2); eGFR NON BLACK RACES > 60 (>60)
[2021-05-20] MEDS: NovoLIN R (or HumuLIN R) SC PRN ×4 (05:48→21:40)
[2021-05-20] MEDS: NORVASC TAB 5 MG PO SCH (08:19)
[2021-05-20] MEDS: CIPRO IV 400 MG PREMIX* 400 MG/200 ML IV.SOLN. IV SCH ×2 (08:19→21:38)
[2021-05-20] MEDS: ACTOS PO SCH (08:19)
[2021-05-20] MEDS: DAKINS SOLUTION HALF STRENGTH 0.25% EXT SCH (08:19)
[2021-05-20] MEDS: ZESTRIL TAB 40 MG PO SCH (08:19)
--- NOTE | 2021-05-20 10:10 | PCM.PROG ---
Progress Note Progress Note for Day of Date of Exam: 05/20/21 Subjective Subjective: The patient reports he is doing better this am. Some pain and redness of left calf but overall improved since admission. Surgery did not recommend I&D at this time. F/U with wound cultures. His culture from his left calf that were done last week came back and he grew out Staphylococcus aureus. It shows that it is sensitive to his Cipro and clindamycin that he is receiving. He also reports his pain is controlled at this time. I will continue him on [place] 7.5/325 mg every 6 hours as needed for pain. The patient continues to have elevated blood pressure this morning. I will Hep-Lock his IV at this time. Also noted his blood so I will start him on Lantus 15 units at bedtime. On Plan on discharge in 1 more day. Past Medical Family Social History Past Med/Fam/Surg Hx: No changes since H&P Allergies: Allergies No Known Drug Allergies Allergy (Verified 05/10/21 10:54) Review of Systems ROS: No change since H&P Vital Signs and I&O's Vital Signs: Temperature 97.8 F Pulse Rate [Left] 70 Pulse Rate 74 Respiratory Rate 16 Blood Pressure [Left Arm] 155/89 Blood Pressure 124/83 O2 Sat by Pulse Oximetry 96 Intake and Output: Intake & Output 05/17/21 05/18/21 05/19/21 05/20/21 11:59 11:59 11:59 11:59 Intake Total 350 / 350 3432 / 3432 4475 / 4475 2356 / 2356 Output Total 0 / 0 4550 / 4550 2875 / 2875 Balance 350 / 350 -1118 / -1118 1600 / 1600 2356 / 2356 Physical Exam Oriented: Normal, Time, Person and Place Eyes: Normal Ear: Normal Nose: Normal Throat: Normal Respiratory: Normal Cardiovascular: Normal : Normal Auscultation: Bowel Sounds: Normal Tenderness: Normal Musculoskeletal: Normal Psychiatric: Normal Mood Description: Calm Affect: Normal Speech Pattern: Clear and Appropriate Laboratory and Diagnostics Result Diagrams: 05/20/21 04:40 05/20/21 04:40 Labs: 05/17/21 10:20 Leg - Left Wound Culture - Final Staphylococcus Aureus 05/16/21 23:30 Blood Blood Culture - Preliminary 05/16/21 23:25 Blood Blood Culture - Preliminary Laboratory WBC 5.5 X10^3/uL (3.6-10.0) 05/20/21 04:40 RBC 4.00 X10^6/uL (4.7-6.0) L 05/20/21 04:40 Hgb 12.0 g/dL (13.5-18.0) L 05/20/21 04:40 Hct 35.8 % (42.0-54.0) L 05/20/21 04:40 MCV 89.4 fL (80.0-100.0) 05/20/21 04:40 MCH 29.9 pg (27.0-34.0) 05/20/21 04:40 MCHC 33.5 g/dL (33.0-35.0) 05/20/21 04:40 RDW 12.5 % (11.6-16.5) 05/20/21 04:40 Plt Count 343 X10^3/uL (150.0-450.0) 05/20/21 04:40 MPV 9.3 fL (7.4-11.0) 05/20/21 04:40 Neut % (Auto) 52.6 % (42.0-75.0) 05/20/21 04:40 Lymph % (Auto) 30.1 % (21.0-51.0) 05/20/21 04:40 [place] % (Auto) 10.3 % (0.0-13.0) 05/20/21 04:40 Eos % (Auto) 4.4 % (0.9-2.9) H 05/20/21 04:40 Baso % (Auto) 2.6 % (0.2-1.0) H 05/20/21 04:40 Neut # (Auto) 2.9 x10^3/uL (2.2-4.8) 05/20/21 04:40 Lymph # (Auto) 1.7 X10^3/uL (1.3-2.9) 05/20/21 04:40 [place] # (Auto) 0.6 x10^3/uL (0.3-0.8) 05/20/21 04:40 Eos # (Auto) 0.2 x10^3/uL (0.0-0.2) 05/20/21 04:40 Baso # (Auto) 0.1 X10^3/uL (0.0-0.1) 05/20/21 04:40 Absolute Nucleated RBC 0.0 /100WBC 05/20/21 04:40 Sodium 134 mmol/L (136-145) L 05/20/21 04:40 Corrected Sodium 138 mmol/L (136-145) 05/20/21 04:40 Potassium 4.2 mmol/L (3.5-5.1) 05/20/21 04:40 Chloride 102 mmol/L (98-107) 05/20/21 04:40 Carbon Dioxide 25.4 mmol/L (21-32) 05/20/21 04:40 BUN 14 mg/dL (7-18) 05/20/21 04:40 Creatinine 0.84 mg/dL (0.70-1.30) 05/20/21 04:40 Est GFR (MDRD) Af Amer > 60 (>60) 05/20/21 04:40 Est GFR (MDRD) Non-Af > 60 (>60) 05/20/21 04:40 Glucose 248 mg/dL (65-99) H 05/20/21 04:40 POC Glucose (mg/dL) 238 mg/dL (65-99) H 05/20/21 05:27 Calcium 8.5 mg/dL (8.5-10.1) 05/20/21 04:40 Corrected Calcium 9.3 mg/dL (8.5-10.1) 05/20/21 04:40 Total Bilirubin 0.10 mg/dL (0.2-1.0) L 05/20/21 04:40 AST 10 Units/L (15-37) L 05/20/21 04:40 ALT 15 Units/L (12-78) 05/20/21 04:40 Alkaline Phosphatase 86 Units/L (46-116) 05/20/21 04:40 Total Protein 7.3 g/dL (6.4-8.2) 05/20/21 04:40 Albumin 3.0 g/dL (3.4-5.0) L 05/20/21 04:40 Globulin 4.3 g/dL (2.5-4.5) 05/20/21 04:40 Albumin/Globulin Ratio 0.7 Ratio (1.1-2.1) L 05/20/21 04:40 Specimen Type Clean catch urine 05/17/21 15:00 Urine Color Pale yellow (YELLOW) 05/17/21 15:00 Urine Appearance Clear (CLEAR) 05/17/21 15:00 Urine pH 6.0 (5.0 - 8.0) 05/17/21 15:00 Ur Specific [place] 1.010 (1.000-1.030) 05/17/21 15:00 Urine Protein Negative (NEGATIVE) 05/17/21 15:00 Urine Glucose (UA) 4+ (NEGATIVE) 05/17/21 15:00 Urine Ketones Negative (NEGATIVE) 05/17/21 15:00 Urine Blood 1+ (NEGATIVE) 05/17/21 15:00 Urine Nitrite Negative (NEGATIVE) 05/17/21 15:00 Urine Bilirubin Negative (NEGATIVE) 05/17/21 15:00 Urine Urobilinogen Normal (NORMAL) 05/17/21 15:00 Ur Leukocyte Esterase Negative (NEGATIVE) 05/17/21 15:00 Urine RBC 0-2 /HPF (0-3) 05/17/21 15:00 Urine WBC None seen /HPF (0-5) 05/17/21 15:00 Ur Squamous Epith Cells Rare /HPF (NEGATIVE) 05/17/21 15:00 Urine Bacteria Trace /HPF (NEGATIVE) 05/17/21 15:00 Urine Sperm Few /HPF (NEGATIVE) 05/17/21 15:00 Ur Culture Indicated? No/not indicated 05/17/21 15:00 SARS CoV-2 RNA Rapid ALEXANDER Negative (NEGATIVE) 05/17/21 02:06 Plan (1) Cellulitis and abscess of left leg: Status: Acute Plan: I will continue the patient on IV clindamycin and Cipro at this time. (2) Diabetes mellitus: Status: Acute Plan: Add Actos 30 mg daily. (3) Pain of left calf: Status: Acute Plan: Ibuprofen for pain control. (4) Hypertension: Status: Acute Plan: Change Lisinopril to 40 mg daily and add Amlodipine 5 mg daily as well for uncontrolled HTN.
[2021-05-20] MEDS: TOPROL XL PO SCH (11:33)
[2021-05-20] MEDS ORDERED: SNACK - Diabetic Appropriate PO SCH (20:00)
[2021-05-20] MEDS ORDERED: LANTUS SC SCH (21:00)
[2021-05-21] MEDS: CLEOCIN 600 MG IV PREMIX 600 MG/50 ML BAG IV SCH (05:36)
[2021-05-21] MEDS: NORCO 7.5/325 MG TAB PO PRN (05:40)
[2021-05-21] MEDS: NovoLIN R (or HumuLIN R) SC PRN ×2 (06:43→11:23)
[2021-05-21] MEDS: ZESTRIL TAB 40 MG PO SCH (08:40)
[2021-05-21] MEDS: NORVASC TAB 5 MG PO SCH (08:40)
[2021-05-21] MEDS: ACTOS PO SCH (08:40)
[2021-05-21] MEDS: CIPRO IV 400 MG PREMIX* 400 MG/200 ML IV.SOLN. IV SCH (08:40)
[2021-05-21] MEDS: TOPROL XL PO SCH (08:40)
[2021-05-21 08:48] VITALS: BP 160/98
--- NOTE | 2021-08-07 20:55 | PCM.DCPLAN ---
DISCHARGE SUMMARY Admission Date Date of Admission: 05/17/21 Discharge Date Discharge Date: 05/21/21 Admission Diagnoses (1) Cellulitis and abscess of left leg: Status: Acute (2) Diabetes mellitus: Status: Acute (3) Pain of left calf: Status: Acute (4) Hypertension: Status: Acute Discharge Diagnoses Discharge Diagnosis: 1. Cellulitis of left leg secondary to Staph aureus overall improved since admission 2. Diabetes mellitus type 2 3. Hypertension 4. Left calf pain secondary to cellulitis Discharge Medications Discharge Medications: Home Medication List amlodipine [Norvasc] 10 mg PO DAILY #30 tab 05/21/21 [Rx] Prescriptions: amlodipine [Norvasc] URIEL MICHAELS Hospital Course Vital Signs: Temperature 98.4 F Pulse Rate [Left] 70 Pulse Rate 69 Respiratory Rate 18 Blood Pressure [Left Arm] 155/89 Blood Pressure 160/98 O2 Sat by Pulse Oximetry 99 Latest Lab Results: Laboratory Last Values WBC 5.5 X10^3/uL (3.6-10.0) 05/20/21 04:40 RBC 4.00 X10^6/uL (4.7-6.0) L 05/20/21 04:40 Hgb 12.0 g/dL (13.5-18.0) L 05/20/21 04:40 Hct 35.8 % (42.0-54.0) L 05/20/21 04:40 MCV 89.4 fL (80.0-100.0) 05/20/21 04:40 MCH 29.9 pg (27.0-34.0) 05/20/21 04:40 MCHC 33.5 g/dL (33.0-35.0) 05/20/21 04:40 RDW 12.5 % (11.6-16.5) 05/20/21 04:40 Plt Count 343 X10^3/uL (150.0-450.0) 05/20/21 04:40 MPV 9.3 fL (7.4-11.0) 05/20/21 04:40 Neut % (Auto) 52.6 % (42.0-75.0) 05/20/21 04:40 Lymph % (Auto) 30.1 % (21.0-51.0) 05/20/21 04:40 [place] % (Auto) 10.3 % (0.0-13.0) 05/20/21 04:40 Eos % (Auto) 4.4 % (0.9-2.9) H 05/20/21 04:40 Baso % (Auto) 2.6 % (0.2-1.0) H 05/20/21 04:40 Neut # (Auto) 2.9 x10^3/uL (2.2-4.8) 05/20/21 04:40 Lymph # (Auto) 1.7 X10^3/uL (1.3-2.9) 05/20/21 04:40 [place] # (Auto) 0.6 x10^3/uL (0.3-0.8) 05/20/21 04:40 Eos # (Auto) 0.2 x10^3/uL (0.0-0.2) 05/20/21 04:40 Baso # (Auto) 0.1 X10^3/uL (0.0-0.1) 05/20/21 04:40 Absolute Nucleated RBC 0.0 /100WBC 05/20/21 04:40 Sodium 134 mmol/L (136-145) L 05/20/21 04:40 Corrected Sodium 138 mmol/L (136-145) 05/20/21 04:40 Potassium 4.2 mmol/L (3.5-5.1) 05/20/21 04:40 Chloride 102 mmol/L (98-107) 05/20/21 04:40 Carbon Dioxide 25.4 mmol/L (21-32) 05/20/21 04:40 BUN 14 mg/dL (7-18) 05/20/21 04:40 Creatinine 0.84 mg/dL (0.70-1.30) 05/20/21 04:40 Est GFR (MDRD) Af Amer > 60 (>60) 05/20/21 04:40 Est GFR (MDRD) Non-Af > 60 (>60) 05/20/21 04:40 Glucose 248 mg/dL (65-99) H 05/20/21 04:40 POC Glucose (mg/dL) 297 mg/dL (65-99) H 05/21/21 11:16 Calcium 8.5 mg/dL (8.5-10.1) 05/20/21 04:40 Corrected Calcium 9.3 mg/dL (8.5-10.1) 05/20/21 04:40 Total Bilirubin 0.10 mg/dL (0.2-1.0) L 05/20/21 04:40 AST 10 Units/L (15-37) L 05/20/21 04:40 ALT 15 Units/L (12-78) 05/20/21 04:40 Alkaline Phosphatase 86 Units/L (46-116) 05/20/21 04:40 Total Protein 7.3 g/dL (6.4-8.2) 05/20/21 04:40 Albumin 3.0 g/dL (3.4-5.0) L 05/20/21 04:40 Globulin 4.3 g/dL (2.5-4.5) 05/20/21 04:40 Albumin/Globulin Ratio 0.7 Ratio (1.1-2.1) L 05/20/21 04:40 Specimen Type Clean catch urine 05/17/21 15:00 Urine Color Pale yellow (YELLOW) 05/17/21 15:00 Urine Appearance Clear (CLEAR) 05/17/21 15:00 Urine pH 6.0 (5.0 - 8.0) 05/17/21 15:00 Ur Specific [place] 1.010 (1.000-1.030) 05/17/21 15:00 Urine Protein Negative (NEGATIVE) 05/17/21 15:00 Urine Glucose (UA) 4+ (NEGATIVE) 05/17/21 15:00 Urine Ketones Negative (NEGATIVE) 05/17/21 15:00 Urine Blood 1+ (NEGATIVE) 05/17/21 15:00 Urine Nitrite Negative (NEGATIVE) 05/17/21 15:00 Urine Bilirubin Negative (NEGATIVE) 05/17/21 15:00 Urine Urobilinogen Normal (NORMAL) 05/17/21 15:00 Ur Leukocyte Esterase Negative (NEGATIVE) 05/17/21 15:00 Urine RBC 0-2 /HPF (0-3) 05/17/21 15:00 Urine WBC None seen /HPF (0-5) 05/17/21 15:00 Ur Squamous Epith Cells Rare /HPF (NEGATIVE) 05/17/21 15:00 Urine Bacteria Trace /HPF (NEGATIVE) 05/17/21 15:00 Urine Sperm Few /HPF (NEGATIVE) 05/17/21 15:00 Ur Culture Indicated? No/not indicated 05/17/21 15:00 SARS CoV-2 RNA Rapid ALEXANDER Negative (NEGATIVE) 05/17/21 02:06 Hospital Course: Following admission patient was continued on IV clindamycin. The following day there was some drainage at the infection site on the left leg which was cultured. Within 2 days we had identified the organism which was Staph aureus. He was both sensitive to clindamycin and ciprofloxacin. So we went ahead and added Cipro IV as well. He had also started complaining of some pain in the left leg at the infection site and because of that I added Cool 7.5/325 every 6 hours as needed pain. Also starting him on p.o. metformin and later added some Lantus at bedtime. He was also given lisinopril 20 mg daily for his hypertension. General surgery has been consulted but they reported there was no surgical I&D needed at that time since no real abscess and developed. Since admission the erythema and edema that he had had improved overall since admission and since we had identified the organism we change him to p.o. Cipro and clindamycin and discharged him home in stable condition. He is also given prescriptions for metformin 500 mg twice daily as well as lisinopril 20 mg daily. Instructions Instructions: Antibiotic Medicine, Adult, [id number] Skin Abscess, [id number] Diabetes Basics Living With Diabetes Cellulitis, Adult, [id number] Hypertension, Adult, [id number] Form - Blood Pressure Record Sheet Form - Diabetes Action Plan You've Been Prescribed an Antibiotic in the Hospital for an Infection - CDC Managing Your Hypertension Diabetes Mellitus and Nutrition Forms: Excuse From Work or School Precautions for COVID19 [facility] Patient Portal Social Distancing
== END 2021-05-21 11:43 | disposition home or self-care (01) | DRG 603 ==
LOC: ER 22:27 → ICU 05-17 02:24 → MED/SURG 05-18 18:46
PROVIDERS: ADMIT Family Medicine; ATTEND Family Medicine
DX: L03.116 Cellulitis of left lower limb; L02.416 Cutaneous abscess of left lower limb; I10 Essential (primary) hypertension; B95.61 Methicillin susceptible Staphylococcus aureus infection as the cause of diseases classified elsewhere; Z20.822 Contact with and (suspected) exposure to COVID-19; M79.662 Pain in left lower leg; E11.65 Type 2 diabetes mellitus with hyperglycemia

== ENCOUNTER 2021-06-01 18:17 | Inpatient (IN) ==
[2021-06-01] MEDS ORDERED: NS 1,000 ML IV 1,000 ML IV ONE (19:26)
--- NOTE | 2021-06-01 19:26 | DR.BITE ---
HPI <Julio Allen - Last Filed: 06/01/21 19:49> Time Seen Time Seen by Provider: 06/01/21 18:48 PCP Primary Care Physician: none Complaint/Symptoms Chief Complaint Doctor Comments: 50 y/o male presents with a wound of the left lower leg. Was seen here 05/10, after having pain for 2 weeks prior, had a I & D, was d/c'd to home with antibiotics. Was admitted 05/20 for several days of IV antibiotics, d/c'd about a week ago, again on antibiotic. Pt states not improving. Left calf with pain, dull, constant, does not radiate. Worse with palpation, movement. Nothing makes it better. Denies associated fever, chills, nausea, vomiting or weakness. Pt is a diabetic. Chief Complaint:: Pt c/o spider bite to left lower leg. He states he was admitted for one week due to the same bite. COVID-19 Coronavirus risk:travel/contact w/high risk person: No Has patient experienced Coronavirus symptoms: No Nurses notes reviewed Nurses Notes Review: Yes Source History Provided: Patient Mode of Arrival Mode of Arrival: Ambulatory Duration Duration: Constant Timing Onset of Chief Complaint: 05/18/21 PMH <Julio Larsonlesli - Last Filed: 06/01/21 19:49> PMH Past Medical History: Yes Past Medical History: Diabetes Past Surgical History: Yes Surgical History: Other Past Surgical History Comment: toe amputation Family History History of Family Medical Conditions: Yes Family Medical History: Diabetes Mellitus Social History Does patient currently use any type of tobacco product: No Have you used tobacco products in the last 12 months: No Type of Tobacco Use: None Does any household member use tobacco: No Alcohol Use: None Do you use any recreational Drugs:: No Lives With: Family Lives Where: Home Travel Risk Coronavirus risk:travel/contact w/high risk person: No Has patient experienced Coronavirus symptoms: No Infectious screening In the last 2 months have you had wt loss of >10#?: NO Have you had fever, night sweats or hemotysis?: No Have you traveled outside the country in the last 6 months?: No Isolation: Standard ROS <Julio Larsonlesli - Last Filed: 06/01/21 19:49> Review of Systems Constitutional: No Symptoms Reported Eyes: No Symptoms Reported ENTM: No Symptoms Reported Respiratoy: No Symptoms Reported Cardiovascular: No Symptoms Reported Gastrointestinal/Abdominal: No Symptoms Reported Genitourinary: No Symptoms Reported Neurological: No Symptoms Reported Musculoskeletal: Left and Leg Integumentary: Wound (left calf region) Hematologic/Lymphatic: No Symptoms Reported Psychiatric: No Symptoms Reported All Other Systems: Reviewed and Negative PE <Julio Allen - Last Filed: 06/01/21 19:49> Vital Signs Vital Signs: Temp Pulse Resp BP BP Pulse Ox 06/01/21 18:21 97.0 F L 75 16 137/81 100 05/21/21 08:00 160/98 05/18/21 18:00 155/89 Constitutional Limitations: No Limitations General Appearance: Alert and In No Apparent Distress Eyes Eye exam: PERRL and EOMI ENT ENT Exam: Normal Exam Neck Neck Exam: Normal Inspection Respiratory Respiratory Exam: Normal Lung Sounds Bilat; negative Accessory Muscle Use and Respiratory Distress Respiratory Exam: Bilateral: Clear to Auscultation Cardiovascular Cardiovascular Exam: Regular Rate, Normal Rhythm and Normal Heart Sounds Extremities Extremities Exam: Other (L calf - with erythema, induration and tenderness, about 12 x 16 cms induration. + two black eschars of center. Distal NV intact. ) Neurologic Neurological Exam: Alert, Oriented X3 and CN II-XII Intact; negative Motor Sensory Deficit Psychiatric Psychiatric Exam: Normal Affect Skin Skin Exam: Warm and Dry <Lashay Gómez - Last Filed: 06/02/21 04:01> Vital Signs Vital Signs: Temp Pulse Resp BP BP Pulse Ox 06/01/21 18:21 97.0 F L 75 16 137/81 100 05/21/21 08:00 160/98 05/18/21 18:00 155/89 [facility] <Julio Allen - Last Filed: 06/01/21 19:49> Differential Diagnosis Differential Diagnosis: Cellulitis Other Differential Diagnosis: Abscess formation COURSE <Juloi Allen - Last Filed: 06/01/21 19:49> Treatment Treatment: 50 y/o diabetic with persistent wound of the left calf region. No improvement after recent hospitalization. Concerning for cellulitis, abscess formation. W/u initiated. Pt will be signed over to my relief physician, Dr Gómez. Will probably require admission, possible OR drainage. <Lashay Gómez - Last Filed: 06/02/21 04:01> Treatment Treatment: discussed admission with daughter and pt; report understanding Consultation Call Returned: 03:59 (Dr Pino agrees to admission) Education/Counseling Education/Counseling: Patient, Family and Counseling ROR <Julio Allen - Last Filed: 06/01/21 19:49> Labs Reviewed Result Diagrams: 06/01/21 19:39 06/01/21 19:39 Laboratory: WBC 7.7 X10^3/uL (3.6-10.0) 06/01/21 19:39 RBC 4.08 X10^6/uL (4.7-6.0) L 06/01/21 19:39 Hgb 11.9 g/dL (13.5-18.0) L 06/01/21 19:39 Hct 36.0 % (42.0-54.0) L 06/01/21 19:39 MCV 88.2 fL (80.0-100.0) 06/01/21 19:39 MCH 29.2 pg (27.0-34.0) 06/01/21 19:39 MCHC 33.1 g/dL (33.0-35.0) 06/01/21 19:39 RDW 12.8 % (11.6-16.5) 06/01/21 19:39 Plt Count 275 X10^3/uL (150.0-450.0) 06/01/21 19:39 MPV 10.0 fL (7.4-11.0) 06/01/21 19:39 Neut % (Auto) 62.2 % (42.0-75.0) 06/01/21 19:39 Lymph % (Auto) 26.0 % (21.0-51.0) 06/01/21 19:39 [place] % (Auto) 5.9 % (0.0-13.0) 06/01/21 19:39 Eos % (Auto) 3.1 % (0.9-2.9) H 06/01/21 19:39 Baso % (Auto) 2.8 % (0.2-1.0) H 06/01/21 19:39 Neut # (Auto) 4.8 x10^3/uL (2.2-4.8) 06/01/21 19:39 Lymph # (Auto) 2.0 X10^3/uL (1.3-2.9) 06/01/21 19:39 [place] # (Auto) 0.5 x10^3/uL (0.3-0.8) 06/01/21 19:39 Eos # (Auto) 0.2 x10^3/uL (0.0-0.2) 06/01/21 19:39 Baso # (Auto) 0.2 X10^3/uL (0.0-0.1) H 06/01/21 19:39 Absolute Nucleated RBC 0.0 /100WBC 06/01/21 19:39 Sodium 136 mmol/L (136-145) 06/01/21 19:39 Corrected Sodium 138 mmol/L (136-145) 06/01/21 19:39 Potassium 4.7 mmol/L (3.5-5.1) 06/01/21 19:39 Chloride 102 mmol/L (98-107) 06/01/21 19:39 Carbon Dioxide 26.6 mmol/L (21-32) 06/01/21 19:39 BUN 27 mg/dL (7-18) H 06/01/21 19:39 Creatinine 1.53 mg/dL (0.70-1.30) H 06/01/21 19:39 Est GFR (MDRD) Af Amer > 60 (>60) 06/01/21 19:39 Est GFR (MDRD) Non-Af 51 (>60) L 06/01/21 19:39 Glucose 163 mg/dL (65-99) H 06/01/21 19:39 Lactic Acid 1.6 mmol/L (0.4-2.0) 06/01/21 19:39 Calcium 8.9 mg/dL (8.5-10.1) 06/01/21 19:39 Corrected Calcium TNP 06/01/21 19:39 Total Bilirubin 0.20 mg/dL (0.2-1.0) 06/01/21 19:39 AST 13 Units/L (15-37) L 06/01/21 19:39 ALT 16 Units/L (12-78) 06/01/21 19:39 Alkaline Phosphatase 83 Units/L (46-116) 06/01/21 19:39 Total Protein 7.5 g/dL (6.4-8.2) 06/01/21 19:39 Albumin 3.6 g/dL (3.4-5.0) 06/01/21 19:39 Globulin 3.9 g/dL (2.5-4.5) 06/01/21 19:39 Albumin/Globulin Ratio 0.9 Ratio (1.1-2.1) L 06/01/21 19:39 <Lashay Gómez - Last Filed: 06/02/21 04:01> Labs Reviewed Laboratory Results Reviewed?: Yes Laboratory: WBC 7.7 X10^3/uL (3.6-10.0) 06/01/21 19:39 RBC 4.08 X10^6/uL (4.7-6.0) L 06/01/21 19:39 Hgb 11.9 g/dL (13.5-18.0) L 06/01/21 19:39 Hct 36.0 % (42.0-54.0) L 06/01/21 19:39 MCV 88.2 fL (80.0-100.0) 06/01/21 19:39 MCH 29.2 pg (27.0-34.0) 06/01/21 19:39 MCHC 33.1 g/dL (33.0-35.0) 06/01/21 19:39 RDW 12.8 % (11.6-16.5) 06/01/21 19:39 Plt Count 275 X10^3/uL (150.0-450.0) 06/01/21 19:39 MPV 10.0 fL (7.4-11.0) 06/01/21 19:39 Neut % (Auto) 62.2 % (42.0-75.0) 06/01/21 19:39 Lymph % (Auto) 26.0 % (21.0-51.0) 06/01/21 19:39 [place] % (Auto) 5.9 % (0.0-13.0) 06/01/21 19:39 Eos % (Auto) 3.1 % (0.9-2.9) H 06/01/21 19:39 Baso % (Auto) 2.8 % (0.2-1.0) H 06/01/21 19:39 Neut # (Auto) 4.8 x10^3/uL (2.2-4.8) 06/01/21 19:39 Lymph # (Auto) 2.0 X10^3/uL (1.3-2.9) 06/01/21 19:39 [place] # (Auto) 0.5 x10^3/uL (0.3-0.8) 06/01/21 19:39 Eos # (Auto) 0.2 x10^3/uL (0.0-0.2) 06/01/21 19:39 Baso # (Auto) 0.2 X10^3/uL (0.0-0.1) H 06/01/21 19:39 Absolute Nucleated RBC 0.0 /100WBC 06/01/21 19:39 Sodium 136 mmol/L (136-145) 06/01/21 19:39 Corrected Sodium 138 mmol/L (136-145) 06/01/21 19:39 Potassium 4.7 mmol/L (3.5-5.1) 06/01/21 19:39 Chloride 102 mmol/L (98-107) 06/01/21 19:39 Carbon Dioxide 26.6 mmol/L (21-32) 06/01/21 19:39 BUN 27 mg/dL (7-18) H 06/01/21 19:39 Creatinine 1.53 mg/dL (0.70-1.30) H 06/01/21 19:39 Est GFR (MDRD) Af Amer > 60 (>60) 06/01/21 19:39 Est GFR (MDRD) Non-Af 51 (>60) L 06/01/21 19:39 Glucose 163 mg/dL (65-99) H 06/01/21 19:39 Lactic Acid 1.6 mmol/L (0.4-2.0) 06/01/21 19:39 Calcium 8.9 mg/dL (8.5-10.1) 06/01/21 19:39 Corrected Calcium TNP 06/01/21 19:39 Total Bilirubin 0.20 mg/dL (0.2-1.0) 06/01/21 19:39 AST 13 Units/L (15-37) L 06/01/21 19:39 ALT 16 Units/L (12-78) 06/01/21 19:39 Alkaline Phosphatase 83 Units/L (46-116) 06/01/21 19:39 Total Protein 7.5 g/dL (6.4-8.2) 06/01/21 19:39 Albumin 3.6 g/dL (3.4-5.0) 06/01/21 19:39 Globulin 3.9 g/dL (2.5-4.5) 06/01/21 19:39 Albumin/Globulin Ratio 0.9 Ratio (1.1-2.1) L 06/01/21 19:39 Opioid <Julio Allen - Last Filed: 06/01/21 19:49> Opioid Risk Tool Age (Ben box if 16-45): No History of Preadolescent Sexual Abuse: No Total: 0 Total Score Risk Category: Low Risk Copyright: Dominick PASTOR predicting aberrant behaviors <Lashay Gómez - Last Filed: 06/02/21 04:01> Opioid Risk Tool Total: 0 Total Score Risk Category: Low Risk <Julio Allen - Last Filed: 06/01/21 19:49> Diagnosis Discharge Problem: Cellulitis and abscess of left leg Instructions Forms: [facility] Patient Portal Social Distancing
[2021-06-01] MEDS ORDERED: NS 1,000 ML IV 1,000 ML ONE ×2 (19:32→21:09)
[2021-06-01 19:53] LABS: BASOPHILS # (AUTO) 0.2 X10^3/uL (0.0-0.1); BASOPHILS % (AUTO) 2.8 % (0.2-1.0); EOSINOPHILS # (AUTO) 0.2 x10^3/uL (0.0-0.2); EOSINOPHILS % (AUTO) 3.1 % (0.9-2.9); HEMOGLOBIN 11.9 g/dL (13.5-18.0); MEAN CORPUSCULAR HEMOGLOBIN 29.2 pg (27.0-34.0); MEAN CORPUSCULAR HGB CONC 33.1 g/dL (33.0-35.0); MEAN CORPUSCULAR VOLUME 88.2 fL (80.0-100.0); MONOCYTES # (AUTO) 0.5 x10^3/uL (0.3-0.8); MONOCYTES % (AUTO) 5.9 % (0.0-13.0); NEUTROPHILS # (AUTO) 4.8 x10^3/uL (2.2-4.8); NEUTROPHILS % (AUTO) 62.2 % (42.0-75.0); RED BLOOD COUNT 4.08 X10^6/uL (4.7-6.0); RED CELL DISTRIBUTION WIDTH 12.8 % (11.6-16.5); WHITE BLOOD COUNT 7.7 X10^3/uL (3.6-10.0)
[2021-06-01 20:08] LABS: ALANINE AMINOTRANSFERASE 16 Units/L (12-78); ALBUMIN 3.6 g/dL (3.4-5.0); ALKALINE PHOSPHATASE 83 Units/L (46-116); ASPARTATE AMINO TRANSFERASE 13 Units/L (15-37); BLOOD UREA NITROGEN 27 mg/dL (7-18); CALCIUM 8.9 mg/dL (8.5-10.1); CARBON DIOXIDE 26.6 mmol/L (21-32); CHLORIDE 102 mmol/L (98-107); COR NA(FOR HYPERGLY) 138 mmol/L (136-145); CREATININE 1.53 mg/dL (0.70-1.30); SODIUM 136 mmol/L (136-145); TOTAL PROTEIN 7.5 g/dL (6.4-8.2); eGFR NON BLACK RACES 51 (>60)
[2021-06-01 20:14] LABS: LACTIC ACID 1.6 mmol/L (0.4-2.0)
--- NOTE | 2021-06-01 20:36 | RAD ---
HISTORYCELLULITIS/ABCESS OF CALF, F/O GAS FORMATION, Pt c/o spider bite to left lower leg. He states he was admitted for one week due to the same bite DM, TOE AMPUTATIONSTUDYThree views of the left tibia/fibula.COMPARISONLeft tibial series dated May 17, 2021.FINDINGSAP and lateral radiographs of the lower extremity demonstrate no evidence for acute cortical disruption. No significant soft tissue abnormality can be identified. Vascular calcifications are seen.IMPRESSIONNo acute osseous abnormality.Electronically signed by: GIBSON IBARRA (Jun 01, 2021 20:35:16)
[2021-06-01] MEDS ORDERED: VANCOMYCIN IV *PREMIX 1 G/200 ML BAG 1 G/200 ML PIGGYBACK IV SCH (21:00)
[2021-06-01] MEDS ORDERED: NORCO 5/325 MG TAB PO PRN (21:02)
[2021-06-01] MEDS ORDERED: ZOFRAN INJ 4 MG VIAL IVP PRN (21:02)
[2021-06-01] MEDS ORDERED: VANCOMYCIN IV *PREMIX 1 G/200 ML BAG 1 G/200 ML PIGGYBACK IV ONE (21:09)
[2021-06-01] MEDS: NS 1,000 ML IV 1,000 ML IV SCH (21:16)
--- NOTE | 2021-06-01 21:21 | RAD ---
HISTORYPRE-OP LEFT LEG PMH: HTNSTUDYCHEST, 1 VIEWCOMPARISONNone.FINDINGSThe trachea is midline. The cardiac silhouette is unremarkable. The lungs are clear without focal infiltrate, pneumothorax, or effusion. The bony thorax is unremarkable.IMPRESSIONNo acute cardiopulmonary findings .Electronically signed by: GIBSON IBARRA (Jun 01, 2021 21:21:34)
[2021-06-02 00:20] VITALS: BMI 25.0
[2021-06-02 04:35] LABS: BASOPHILS # (AUTO) 0.1 X10^3/uL (0.0-0.1); BASOPHILS % (AUTO) 1.2 % (0.2-1.0); EOSINOPHILS # (AUTO) 0.3 x10^3/uL (0.0-0.2); EOSINOPHILS % (AUTO) 4.2 % (0.9-2.9); HEMATOCRIT 35.2 % (42.0-54.0); HEMOGLOBIN 11.8 g/dL (13.5-18.0); LYMPHOCYTES # (AUTO) 1.7 X10^3/uL (1.3-2.9); LYMPHOCYTES % (AUTO) 26.9 % (21.0-51.0); MEAN CORPUSCULAR HEMOGLOBIN 29.6 pg (27.0-34.0); MEAN CORPUSCULAR HGB CONC 33.6 g/dL (33.0-35.0); MEAN CORPUSCULAR VOLUME 88.1 fL (80.0-100.0); MEAN PLATELET VOLUME 10.6 fL (7.4-11.0); MONOCYTES # (AUTO) 0.4 x10^3/uL (0.3-0.8); MONOCYTES % (AUTO) 6.7 % (0.0-13.0); RED CELL DISTRIBUTION WIDTH 13.2 % (11.6-16.5); WHITE BLOOD COUNT 6.5 X10^3/uL (3.6-10.0)
[2021-06-02 04:51] LABS: ALANINE AMINOTRANSFERASE 14 Units/L (12-78); ALBUMIN 3.1 g/dL (3.4-5.0); ALKALINE PHOSPHATASE 77 Units/L (46-116); ASPARTATE AMINO TRANSFERASE 10 Units/L (15-37); BLOOD UREA NITROGEN 22 mg/dL (7-18); CALCIUM 8.6 mg/dL (8.5-10.1); CHLORIDE 104 mmol/L (98-107); COR CA(FOR HYPOALB) 9.3 mg/dL (8.5-10.1); COR NA(FOR HYPERGLY) 139 mmol/L (136-145); CREATININE 0.91 mg/dL (0.70-1.30); SODIUM 136 mmol/L (136-145); TOTAL PROTEIN 6.8 g/dL (6.4-8.2); eGFR NON BLACK RACES > 60 (>60)
[2021-06-02] MEDS: NS 1,000 ML IV 1,000 ML IV SCH ×4 (05:40→22:08)
[2021-06-02] MEDS: VANCOMYCIN IV *PREMIX 1 G/200 ML BAG 1 G/200 ML PIGGYBACK IV SCH ×2 (09:00→21:55)
[2021-06-02] MEDS ORDERED: NS 1,000 ML IV 1,000 ML ONE (10:07)
[2021-06-02] MEDS ORDERED: VANCOMYCIN IV *PREMIX 1 G/200 ML BAG 1 G/200 ML PIGGYBACK IV ONE (10:11)
[2021-06-02] MEDS ORDERED: BETADINE SOLN ONE ×2 (10:17→10:22)
[2021-06-02] MEDS ORDERED: POLYMYXIN B SULFATE ONE (10:22)
[2021-06-02] MEDS ORDERED: PRECEDEX INJ VIAL IVP ONE (10:57)
[2021-06-02] MEDS ORDERED: DIPRIVAN VIAL 20 ML ONE (10:57)
[2021-06-02] MEDS ORDERED: FENTANYL VIAL INJ 100 mcg ONE (10:57)
[2021-06-02] MEDS ORDERED: VERSED ONE (10:57)
[2021-06-02] MEDS ORDERED: XYLOCAINE 1 % (PLAIN) ONE (11:03)
[2021-06-02] MEDS ORDERED: STERILE WATER IRRIGATION IR ONE (15:01)
[2021-06-02 15:40] LABS: BILIRUBIN,URINE NEGATIVE (NEGATIVE); BLOOD/HEMOGLOBIN,URINE NEGATIVE (NEGATIVE); GLUCOSE, URINE 3+ (NEGATIVE); KETONES,URINE NEGATIVE (NEGATIVE); LEUKOCYTE ESTERASE ,URINE NEGATIVE (NEGATIVE); NITRITES,URINE NEGATIVE (NEGATIVE); PROTEIN,URINE NEGATIVE (NEGATIVE); UROBILINOGEN,URINE NORMAL (NORMAL)
[2021-06-02 15:43] LABS: APPEARANCE,URINE SLIGHTLY HAZY (CLEAR); COLOR,URINE PALE YELLOW (YELLOW)
[2021-06-02] MEDS: SNACK - Diabetic Appropriate PO SCH (20:45)
[2021-06-02] MEDS: NovoLIN R (or HumuLIN R) SUBCUT PRN (21:55)
[2021-06-03] MEDS: NS 1,000 ML IV 1,000 ML IV SCH ×4 (02:00→16:16)
[2021-06-03 06:08] LABS: BASOPHILS # (AUTO) 0.1 X10^3/uL (0.0-0.1); BASOPHILS % (AUTO) 1.7 % (0.2-1.0); EOSINOPHILS # (AUTO) 0.2 x10^3/uL (0.0-0.2); EOSINOPHILS % (AUTO) 3.9 % (0.9-2.9); HEMATOCRIT 35.5 % (42.0-54.0); HEMOGLOBIN 11.9 g/dL (13.5-18.0); LYMPHOCYTES # (AUTO) 1.8 X10^3/uL (1.3-2.9); LYMPHOCYTES % (AUTO) 33.1 % (21.0-51.0); MEAN CORPUSCULAR HEMOGLOBIN 29.7 pg (27.0-34.0); MEAN CORPUSCULAR HGB CONC 33.6 g/dL (33.0-35.0); MEAN CORPUSCULAR VOLUME 88.3 fL (80.0-100.0); MONOCYTES # (AUTO) 0.4 x10^3/uL (0.3-0.8); MONOCYTES % (AUTO) 6.6 % (0.0-13.0); NEUTROPHILS # (AUTO) 2.9 x10^3/uL (2.2-4.8); NEUTROPHILS % (AUTO) 54.7 % (42.0-75.0); RED BLOOD COUNT 4.01 X10^6/uL (4.7-6.0); RED CELL DISTRIBUTION WIDTH 12.8 % (11.6-16.5); WHITE BLOOD COUNT 5.4 X10^3/uL (3.6-10.0)
[2021-06-03 06:32] LABS: ALANINE AMINOTRANSFERASE 13 Units/L (12-78); ALBUMIN 3.1 g/dL (3.4-5.0); ALKALINE PHOSPHATASE 66 Units/L (46-116); ASPARTATE AMINO TRANSFERASE 13 Units/L (15-37); BLOOD UREA NITROGEN 10 mg/dL (7-18); CALCIUM 8.7 mg/dL (8.5-10.1); CARBON DIOXIDE 22.6 mmol/L (21-32); CHLORIDE 107 mmol/L (98-107); COR CA(FOR HYPOALB) 9.4 mg/dL (8.5-10.1); COR NA(FOR HYPERGLY) 140 mmol/L (136-145); CREATININE 0.72 mg/dL (0.70-1.30); SODIUM 139 mmol/L (136-145); TOTAL PROTEIN 6.8 g/dL (6.4-8.2); eGFR NON BLACK RACES > 60 (>60)
[2021-06-03] MEDS ORDERED: PHARMACY COMMENT IV NR (08:30)
[2021-06-03 08:33] LABS: CREATININE 0.75 mg/dL (0.70-1.30); VANCOMYCIN,TROUGH 8.6 ug/mL (15-20)
[2021-06-03] MEDS: VANCOMYCIN IV *PREMIX 1.5 G/300 ML BAG 1.5 G/300 ML PIGGYBACK IV SCH ×2 (09:45→21:30)
[2021-06-03] MEDS: NovoLIN R (or HumuLIN R) SUBCUT PRN ×3 (11:45→21:30)
--- NOTE | 2021-06-03 16:47 | DR.PROGNOT ---
Hospital Progress Notes - Progress Note for Day of: Progress Note Date: 06/03/21 - Chief Complaint Chief Complaint: dressing was changed and packing was removed .. .much better with less pain. culture showed Staph infection . - Past Medical Family Social History Past Med/Fam/Surg Hx: No changes since H&P Allergies: Allergies No Known Drug Allergies Allergy (Verified 05/10/21 10:54) - Vital Signs Vital Signs: Temperature 97.9 F Pulse Rate [Right Brachial] 65 Pulse Rate 75 Respiratory Rate 22 Blood Pressure [Left Arm] 167/88 Blood Pressure 137/81 O2 Sat by Pulse Oximetry 94 - Physical Exam Oriented: Normal Ear: Normal Nose: Normal Throat: Normal Respiratory: Normal Cardiovascular: Normal : Normal GI:Auscultation: Normal GI:Palpation: Normal GI: Tenderness: Normal Skin: Other (resolving abscess Lt calf with mild erythema . no necrosis ) Mood Description: Calm Speech Pattern: Clear, Appropriate - Laboratory and Diagnostics Result Diagrams: 06/03/21 05:55 06/03/21 08:07 Labs: 06/01/21 19:39 Blood Blood Culture - Preliminary 06/01/21 19:45 Blood Blood Culture - Preliminary 06/02/21 11:33 Leg - Left Wound Gram Stain - Final 06/02/21 11:33 Leg - Left Wound Culture - Preliminary Laboratory WBC 5.4 X10^3/uL (3.6-10.0) 06/03/21 05:55 RBC 4.01 X10^6/uL (4.7-6.0) L 06/03/21 05:55 Hgb 11.9 g/dL (13.5-18.0) L 06/03/21 05:55 Hct 35.5 % (42.0-54.0) L 06/03/21 05:55 MCV 88.3 fL (80.0-100.0) 06/03/21 05:55 MCH 29.7 pg (27.0-34.0) 06/03/21 05:55 MCHC 33.6 g/dL (33.0-35.0) 06/03/21 05:55 RDW 12.8 % (11.6-16.5) 06/03/21 05:55 Plt Count 228 X10^3/uL (150.0-450.0) 06/03/21 05:55 MPV 10.0 fL (7.4-11.0) 06/03/21 05:55 Neut % (Auto) 54.7 % (42.0-75.0) 06/03/21 05:55 Lymph % (Auto) 33.1 % (21.0-51.0) 06/03/21 05:55 [place] % (Auto) 6.6 % (0.0-13.0) 06/03/21 05:55 Eos % (Auto) 3.9 % (0.9-2.9) H 06/03/21 05:55 Baso % (Auto) 1.7 % (0.2-1.0) H 06/03/21 05:55 Neut # (Auto) 2.9 x10^3/uL (2.2-4.8) 06/03/21 05:55 Lymph # (Auto) 1.8 X10^3/uL (1.3-2.9) 06/03/21 05:55 [place] # (Auto) 0.4 x10^3/uL (0.3-0.8) 06/03/21 05:55 Eos # (Auto) 0.2 x10^3/uL (0.0-0.2) 06/03/21 05:55 Baso # (Auto) 0.1 X10^3/uL (0.0-0.1) 06/03/21 05:55 Absolute Nucleated RBC 0.1 /100WBC 06/03/21 05:55 Sodium 139 mmol/L (136-145) 06/03/21 05:55 Corrected Sodium 140 mmol/L (136-145) 06/03/21 05:55 Potassium 4.1 mmol/L (3.5-5.1) 06/03/21 05:55 Chloride 107 mmol/L (98-107) 06/03/21 05:55 Carbon Dioxide 22.6 mmol/L (21-32) 06/03/21 05:55 BUN 10 mg/dL (7-18) 06/03/21 05:55 Creatinine 0.75 mg/dL (0.70-1.30) 06/03/21 08:07 Est GFR (MDRD) Af Amer > 60 (>60) 06/03/21 05:55 Est GFR (MDRD) Non-Af > 60 (>60) 06/03/21 05:55 Glucose 147 mg/dL (65-99) H 06/03/21 05:55 POC Glucose (mg/dL) 275 mg/dL (65-99) H 06/03/21 16:06 Lactic Acid 1.6 mmol/L (0.4-2.0) 06/01/21 19:39 Calcium 8.7 mg/dL (8.5-10.1) 06/03/21 05:55 Corrected Calcium 9.4 mg/dL (8.5-10.1) 06/03/21 05:55 Total Bilirubin 0.20 mg/dL (0.2-1.0) 06/03/21 05:55 AST 13 Units/L (15-37) L 06/03/21 05:55 ALT 13 Units/L (12-78) 06/03/21 05:55 Alkaline Phosphatase 66 Units/L (46-116) 06/03/21 05:55 Total Protein 6.8 g/dL (6.4-8.2) 06/03/21 05:55 Albumin 3.1 g/dL (3.4-5.0) L 06/03/21 05:55 Globulin 3.7 g/dL (2.5-4.5) 06/03/21 05:55 Albumin/Globulin Ratio 0.8 Ratio (1.1-2.1) L 06/03/21 05:55 Specimen Type Clean catch urine 06/02/21 15:18 Urine Color Pale yellow (YELLOW) 06/02/21 15:18 Urine Appearance Slightly hazy (CLEAR) 06/02/21 15:18 Urine pH 6.0 (5.0 - 8.0) 06/02/21 15:18 Ur Specific [place] 1.010 (1.000-1.030) 06/02/21 15:18 Urine Protein Negative (NEGATIVE) 06/02/21 15:18 Urine Glucose (UA) 3+ (NEGATIVE) 06/02/21 15:18 Urine Ketones Negative (NEGATIVE) 06/02/21 15:18 Urine Blood Negative (NEGATIVE) 06/02/21 15:18 Urine Nitrite Negative (NEGATIVE) 06/02/21 15:18 Urine Bilirubin Negative (NEGATIVE) 06/02/21 15:18 Urine Urobilinogen Normal (NORMAL) 06/02/21 15:18 Ur Leukocyte Esterase Negative (NEGATIVE) 06/02/21 15:18 Vancomycin Trough 8.6 ug/mL (15-20) L 06/03/21 08:07 Tissue Pathology To follow 06/02/21 11:34 - Assessment and Plan 1: resolving abscess Lt lower extr positive for staph . same local care an IV ABT .. to d/c in am . - Problem Patient Problems: Patient Problems Cellulitis and abscess of left leg (Acute) L03.116, L02.416
[2021-06-03] MEDS ORDERED: GLUCOPHAGE ONE (20:42)
[2021-06-03] MEDS: GLUCOPHAGE PO SCH (21:30)
[2021-06-03] MEDS: NORVASC TAB 10 MG PO SCH (21:30)
[2021-06-03] MEDS: ZESTRIL TAB 40 MG PO SCH (21:30)
[2021-06-03] MEDS: TOPROL XL PO SCH (21:30)
[2021-06-04] MEDS: NS 1,000 ML IV 1,000 ML IV SCH ×2 (03:42→05:31)
[2021-06-04] MEDS ORDERED: GLUCOPHAGE ONE (07:15)
[2021-06-04] MEDS ORDERED: DIABETA PO SCH (09:00)
[2021-06-04] MEDS: GLUCOPHAGE PO SCH (09:00)
[2021-06-04 09:10] VITALS: BP 126/85
[2021-06-04] MEDS: TOPROL XL PO SCH (09:18)
[2021-06-04] MEDS: NORVASC TAB 10 MG PO SCH (09:18)
[2021-06-04] MEDS: ZESTRIL TAB 40 MG PO SCH (09:19)
[2021-06-04] MEDS ORDERED: SNACK - Diabetic Appropriate PO SCH (20:00)
[2021-06-04] MEDS ORDERED: PHARMACY COMMENT IV NR (20:30)
== END 2021-06-04 10:35 | disposition home or self-care (01) | DRG 572 ==
LOC: ER 18:20 → MED/SURG 21:02
PROVIDERS: ADMIT Surgery; ATTEND Surgery
DX: E11.65 Type 2 diabetes mellitus with hyperglycemia; I10 Essential (primary) hypertension; L03.116 Cellulitis of left lower limb; B95.61 Methicillin susceptible Staphylococcus aureus infection as the cause of diseases classified elsewhere; T63.301D Toxic effect of unspecified spider venom, accidental (unintentional), subsequent encounter; L02.416 Cutaneous abscess of left lower limb; M79.662 Pain in left lower leg